=== PATIENT | female | born 1965 | race African-American/Black ===

== ENCOUNTER 2020-07-05 13:46 | Emergency (ER) | payer SELFPAY ==
[2020-07-05] VITALS (7 sets, daily range): BP systolic 133–168; BP diastolic 72–110; PULSE 65–78; RESP 15–22; TEMP 35.7; O2SAT 95–100
--- NOTE | 2020-07-05 15:14 | ED.DIZZY ---
HPI - Dizziness General Chief Complaint: Dizziness Stated Complaint: lightheaded Time Seen by Provider: 07/05/20 14:29 Source: patient, RN notes reviewed and old records reviewed Limitations: no limitations History of Present Illness HPI Narrative: 54-year-old female presents to emergency department from work. Patient states she was at work today, and felt lightheaded/dizzy. She was evaluated by the medical staff at her work, and found to have an elevated blood pressure with a systolic of 180s. She was then advised to come to the emergency department for further evaluation. She states she has been having a headache since this morning. Is located on the right side of her head, worse with light. She took 2 [id number] medications this morning to help with her symptoms. She has had a headache similar to this in the past about 1 year ago. No current chest pain or shortness of breath. No abdominal pain. No nausea or vomiting. Related Data Allergies Allergy/AdvReac Type Severity Reaction Status Date / Time Penicillins Allergy Unknown Unknown Verified 08/23/18 16:48 Review of Systems Review of Systems: Narrative: CONSTITUTIONAL: Denies fever, chills, or sweats. EYES: Denies visual changes, redness, or discharge. ENT: Denies rhinorrhea, congestion, sore throat, or otalgia. CARDIOVASCULAR: Denies chest pain, palpitations, or edema. RESPIRATORY: Denies cough or dyspnea. GASTROINTESTINAL: Denies abdominal pain, nausea, vomiting, or diarrhea. GENITOURINARY: Denies dysuria or hematuria. SKIN: Denies rash or itching. MUSCULOSKELETAL: Denies back pain, joint pain, or myalgia. NEUROLOGIC: Denies headache, numbness, dizziness, or weakness. PSYCHIATRIC: Denies anxiety or depression. All systems reviewed & are unremarkable except as noted in HPI and below (ROS) Exam Narrative: Exam Narrative: GENERAL: Well-appearing, well-nourished. Mild distress HEAD: Normocephalic, atraumatic. EYES: PERRLA and EOMI. ENT: Nares clear, no rhinorrhea or epistaxis. Mucous membranes moist. NECK: Supple. CHEST: Clear to auscultation. No respiratory distress. HEART: Regular rate and rhythm. No murmur heard. Normal peripheral pulses. ABDOMEN: Soft, nontender, nondistended, normal active bowel sounds. EXTREMITIES: Normal range of motion. No edema. SKIN: Warm, dry, no rash. NEURO: No focal deficits. Alert and oriented x3. PSYCH: Normal mood and affect. Course Reevaluation(s) Reevaluation #1: 1730 -reevaluated patient, headache improved. Lightheadedness and dizziness likely due to headache. Counseled patient to follow-up with her medical provider within 1 week. Return to emergency department if symptoms persist, worsen, or other concerns. Vital Signs Vital signs: Vital Signs Temperature 35.7 C L 07/05/20 14:13 Pulse Rate 77 07/05/20 14:13 Respiratory Rate 16 07/05/20 14:13 Blood Pressure 140/110 H 07/05/20 14:13 Pulse Oximetry 95 07/05/20 14:13 Temperature 35.7 C L 07/05/20 14:13 Pulse Rate 65 07/05/20 18:10 Respiratory Rate 16 07/05/20 18:10 Blood Pressure 133/72 07/05/20 18:10 Pulse Oximetry 98 07/05/20 18:10 MDM - Dizziness Medical Records Attestation: I reviewed the patient's medical records. Lab Data Attestation: I reviewed the patient's lab results. Result diagrams: 07/05/20 15:30 07/05/20 15:30 Labs: Lab Results 07/05/20 07/05/20 Range/Units 15:30 15:30 WBC 9.2 (4.5-10.0) K/mm3 RBC 4.60 (4.2-5.4) M/mm3 Hgb 13.8 (12.0-15.0) g/dL Hct 40.9 (37.0-47.0) % MCV 88.9 (80-100) fl MCH 30.0 (26-34) pg MCHC 33.7 (32-36) g/dl RDW 15.7 H (11.5-14.5) % Plt Count 202 (150-375) k/mm3 MPV 10.5 H (7.4-10.4) fl Immature Gran % (Auto) 0.3 (0-0.5) % Neut % (Auto) 55.9 (45.5-73.1) % Lymph % (Auto) 31.6 (18.3-44.2) % [place] % (Auto) 6.1 (2.6-8.5) % Eos % (Auto) 5.6 H (0-4.4) % Baso % (Auto) 0.5 (0.2-1.2) % Lymph # (Auto) 2.
[2020-07-05 15:38] LABS: Basophils Absolute Auto 0.1 K/mm3 (0.0-0.1); Basophils Percent Auto 0.5 % (0.2-1.2); Eosinophils Absolute Auto 0.5 K/mm3 (0-0.3); Eosinophils Percent Auto 5.6 % (0-4.4); Hematocrit 40.9 % (37.0-47.0); Hemoglobin 13.8 g/dL (12.0-15.0); Immature Granulocyte Absolute 0.03 K/mm3 (0.00-0.031); Immature Granulocyte Percent A 0.3 % (0-0.5); Lymphocytes Absolute Auto 2.92 K/mm3 (0.9-3.2); Lymphocytes Percent Auto 31.6 % (18.3-44.2); Mean Corpuscular HGB Conc 33.7 g/dl (32-36); Mean Corpuscular Volume 88.9 fl (80-100); Mean Platelet Volume 10.5 fl (7.4-10.4); Monocytes Absolute Auto 0.6 K/mm3 (0.1-0.6); Monocytes Percent Auto 6.1 % (2.6-8.5); Neutrophils Absolute Auto 5.2 K/mm3 (1.3-6.7); Neutrophils Percent Auto 55.9 % (45.5-73.1); Platelet Count Result 202 k/mm3 (150-375); Red Cell Distribution Width 15.7 % (11.5-14.5); White Blood Count 9.2 K/mm3 (4.5-10.0)
[2020-07-05 15:50] LABS: Alanine Aminotransferase 70 U/L (4-35); Albumin Level 4.2 g/dL (3.5-5.1); Alkaline Phosphatase 97 U/L (38-126); Anion Gap 4 mmol/L (8-16); Aspartate Amino Transferase 44 U/L (14-36); Bilirubin,Total 0.3 mg/dL (0.2-1.3); Blood Urea Nitrogen 16 mg/dL (7-17); Calcium 9.5 mg/dL (8.4-10.2); Carbon Dioxide 28 mmol/L (22-30); Chloride 105 mmol/L (98-107); Estimated CRCL calculation 93 ml/min; Estimated Glomerular Filt Rate > 60; Glucose 109 mg/dL (65-105); Sodium 137 mmol/L (137-145)
[2020-07-05] MEDS: diphenhydrAMINE HCl CAP 25 MG CAPSULE 50 MG PO (16:14)
[2020-07-05] MEDS: KETOROLAC 30 MG/ML VIAL (*BKC) IM (16:15)
[2020-07-05] MEDS: PROCHLORPERAZINE EDISYLATE 10 MG/2 ML VIAL IM (16:16)
== END 2020-07-05 18:10 | disposition home or self-care (01) ==
PROVIDERS: Emergency Provider Emergency Medicine; PCP Family Medicine
DX: R51.9 Headache, unspecified (principal)
CPT/HCPCS: 36415; 80053; 85025; 96372; 99284; A9270; J0780; J1885

== ENCOUNTER 2020-12-02 19:07 | Emergency (ER) | payer SELFPAY ==
--- NOTE | ~2020-12-02 | XR_ITS ---
EXAMINATION: XR chest 2V EXAM DATE: 12/02/2020 19:40 INDICATION: Chest congestion. TECHNIQUE: Frontal and lateral projections of the chest obtained and reviewed. There is no prior keely dy for comparison. FINDINGS: Linear right midlung zone atelectasis, several smaller regions of left midlung zone atelect asis. The lungs are otherwise clear. There are no pleural effusions. The cardiomediastinal silhouet te is within normal limits. There is no pneumothorax suspected. The bones and soft tissues are unre markable. IMPRESSION: Bilateral subsegmental atelectasis. Reviewed, dictated and finalized at location A.
[2020-12-02 19:18] VITALS: BP 176/84; PULSE 84; RESP 16; TEMP 36.4; O2SAT 99
--- NOTE | 2020-12-02 19:27 | ED.URI ---
HPI - URI/Sore Throat General Chief Complaint: Upper Respiratory Infection Stated Complaint: Sore Throat,Congestion Time Seen by Provider: 12/02/20 19:27 Source: patient and RN notes reviewed Mode of arrival: ambulatory Limitations: no limitations History of Present Illness HPI Narrative: 55-year-old female presents to the [facility] with complaints of generalized fatigue and I just do not feel good . reports a nonproductive cough. After coughing has some mild tightness in the upper chest bilaterally. Denies fevers. 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 States that she is tested for Covid every 2 weeks and has tested negative however she has had this cough, nasal congestion, rhinorrhea. Patient is a current smoker. Has a history of bronchitis. No treatment prior to arrival Related Data Allergies Allergy/AdvReac Type Severity Reaction Status Date / Time Penicillins Allergy Unknown Unknown Verified 08/23/18 16:48 Review of Systems Review of Systems: All systems reviewed & are unremarkable except as noted in HPI and below Constitutional: Constitutional: Reports as per HPI, Reports fatigue, Denies fever(s) and Denies weakness Eyes: Eyes: Reports no additional eye complaints ENT: Reports system reviewed and no additional complaints, except as documented and Reports sore throat Cardiovascular: Cardiovascular: Reports no additional cardiovascular complaints and Denies chest pain Respiratory: Respiratory: Reports as per HPI, Reports chest congestion, Reports cough, Reports dyspnea and Denies wheezing Gastrointestinal: Gastrointestinal: Reports no additional gastrointestinal complaints, Denies abdominal pain, Denies nausea and Denies vomiting Musculoskeletal: Musculoskeletal: Reports no additional musculoskeletal complaints and Denies back pain Integumentary/Breasts: Skin/Breast: Reports system reviewed and no additional complaints, except as docu and Denies rash Neurologic: Reports system reviewed and no additional complaints, except as documented Psychiatric: Psychiatric: Reports no additional psychiatric complaints PMFSH Comments At the time of my signature, I reviewed and agree with the nursing past medical, surgical, social, and family history. There is no relevant family history pertinent to the patient complaint. Exam Const: General: no acute distress, alert and ill appearing (Mildly) acutely Nutritional Appearance: well nourished and obese morbidly obese Orientation/consciousness: patient oriented x3 Limitations: no limitations HENMT: Head: normal to inspection Face and sinus: sinuses nontender Mouth: Yes Normal oral and palatal mucosa present Throat: posterior oropharynx normal and uvula midline Eyes: Pupils: Equal, round and reactive pupils present Neck: Neck: normal visual inspection and no lymphadenopathy Chest: Chest palpation & inspection: normal inspection of the chest Resp: Effort & Inspection: normal respiratory effort and no use of accessory muscles Auscultation: no crackles, no rales, no rhonchi, no wheezes and diminished lung sounds bilateral and localized (Lower lobes) Cardio: Rate: regular rate Rhythm: regular rhythm : General: Yes no CVA tenderness Back/Spine/Pelvis: Back: no CVA tenderness Skin: General skin exam: normal color Rashes: no rashes Neuro: General: patient oriented x3, moves all extremities, no meningeal signs and no focal motor deficits Speech: normal speech Gait exam (Neuro): Normal gait present Extrem: General: normal to inspection Psych: Appearance: grossly normal Mental Status: mental status grossly normal Affect: normal affect Attitude: cooperative Thought content: Yes Normal thought content present Course Vital Signs Vital signs: Vital Signs Temperature 97.6 F 12/02/20 19:18 Pulse Rate 84 12/02/20 19:18 Respiratory Rate 16 12/02/20 19:18 Blood Pressure 176/84 H 12/02/20 19:18 Pulse Oximetry 99 12/02/20 19:18 Temperature 97.6 F 12/02/20 1
[2020-12-04 18:48] LABS: SARS-CoV-2 RNA PCR Negative
== END 2020-12-02 19:51 | disposition home or self-care (01) ==
PROVIDERS: Emergency Provider Nurse Practitioner; PCP Family Medicine
DX: J06.9 Acute upper respiratory infection, unspecified (principal); J40 Bronchitis, not specified as acute or chronic
CPT/HCPCS: 71046; 87804; 99213; C9803; G0463; U0003; U0005

== ENCOUNTER 2021-05-03 09:14 | Emergency (ER) | payer BC, SELFPAY ==
[2021-05-03 09:31] VITALS: BP 142/90; PULSE 76; RESP 16; TEMP 36.4; O2SAT 98
--- NOTE | 2021-05-03 19:17 | ED.FEMALEGU ---
HPI - Female Genitourinary General Chief complaint: Urogenital-Female Stated complaint: uti Time Seen by Provider: 05/03/21 10:06 Source: patient and RN notes reviewed Mode of arrival: ambulatory Limitations: no limitations History of Present Illness HPI Narrative: Patient presents today complaining of 4-day history of urinary frequency, dysuria, urgency, urinary pressure. Patient states, it feels like something is falling out. She currently rates the pressure 8/10 and has been drinking cranberry juice and taking Tylenol and Aleve without relief. Denies hematuria and back pain. MD elicited complaint: dysuria Related Data Home Medications Medication Instructions Recorded Confirmed amitriptyline 05/03/21 amlodipine 05/03/21 gabapentin 05/03/21 lisinopril 05/03/21 Allergies Allergy/AdvReac Type Severity Reaction Status Date / Time Penicillins Allergy Unknown Unknown Verified 08/23/18 16:48 Review of Systems Review of Systems: CONSTITUTIONAL: Denies body aches, fever, chills, or sweats. EYES: Denies visual changes, redness, or discharge. ENT: Denies rhinorrhea, congestion, sore throat, or otalgia. CARDIOVASCULAR: Denies chest pain, palpitations, or edema. RESPIRATORY: Denies cough or dyspnea. GASTROINTESTINAL: Denies nausea, vomiting, or diarrhea.+ Lower abdominal pressure GENITOURINARY: Denies hematuria.+ Urgency, frequency, dysuria SKIN: Denies rash, itching, or wounds. MUSCULOSKELETAL: Denies back pain, joint pain, or myalgia. NEUROLOGIC: Denies headache, numbness, tingling, or weakness. PSYCH: Denies depression or anxiety. [facility], [facility] Past Medical History Medical History (Updated 05/03/21 @ 19:24 by Ange Casey, [facility], ) Anxiety GERD (gastroesophageal reflux disease) Hypertension Comments At time of signature, I have reviewed and agree with nursing past medical, surgical, social and family history unless otherwise noted. Please see nursing chart for further information. There is no relevant family history pertinent to the presenting complaint Exam Narrative: GENERAL: Well-appearing, well-nourished, and in no acute distress. HEAD: Normocephalic, atraumatic. EYES: EOMI. No redness or drainage. Conjunctivae normal. ENT: Mucous membranes pink and moist. NECK: Normal AROM. CHEST: No respiratory distress. Clear to auscultation. HEART: Regular rate and rhythm. No murmur appreciated. Normal peripheral pulses. ABDOMEN: Soft, nontender, nondistended, normal active bowel sounds. MUSCULOSKELETAL: No bony tenderness. EXTREMITIES: Normal range of motion. No edema. SKIN: Warm, dry, no rash. Capillary refill normal. Normal skin turgor. NEURO: No focal deficits. Alert and oriented x3. Gait steady. PSYCH: Normal affect. No signs of depression or anxiety. Course Vital Signs Vital signs: Vital Signs Temperature 97.5 F L 05/03/21 09:31 Pulse Rate 76 05/03/21 09:31 Respiratory Rate 16 05/03/21 09:31 Blood Pressure 142/90 H 05/03/21 09:31 Pulse Oximetry 98 05/03/21 09:31 Temperature 97.5 F L 05/03/21 09:31 Pulse Rate 76 05/03/21 09:31 Respiratory Rate 16 05/03/21 09:31 Blood Pressure 142/90 H 05/03/21 09:31 Pulse Oximetry 98 05/03/21 09:31 Reviewed. Pt has been instructed to follow up with her PCP regarding her elevated blood pressure today. MDM - Female Genitourinary Differential Diagnosis Differential diagnosis: Likely urinary tract infection, cystitis and other (Bladder prolapse, vaginal prolapse) Lab Data Attestation: I reviewed the patient's lab results. Labs: Urine Glucose Negative Reference Range: Negative Urine Bilirubin Negative Reference Range: Negative Urine Ketone Negative Reference Range: Negative Urine Specific [place] 1.030
== END 2021-05-03 10:25 | disposition home or self-care (01) ==
PROVIDERS: Emergency Provider Nurse Practitioner; PCP Family Medicine
DX: R10.31 Right lower quadrant pain (principal); R10.32 Left lower quadrant pain; F41.9 Anxiety disorder, unspecified; I10 Essential (primary) hypertension; K21.9 Gastro-esophageal reflux disease without esophagitis
CPT/HCPCS: 81003; 99213; G0463

== ENCOUNTER 2023-01-10 19:14 | Emergency (ER) | payer BC, SELFPAY ==
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
[2023-01-10 19:24] VITALS: BP 152/72; PULSE 93; RESP 16; TEMP 36.3; O2SAT 97
[2023-01-10 19:26] VITALS: BP 152/72; PULSE 93; RESP 16; TEMP 36.3; O2SAT 97
== END 2023-01-10 19:46 | disposition home or self-care (01) ==
PROVIDERS: Emergency Provider Nurse Practitioner Family; PCP Physician Assistant
DX: T15.92XA Foreign body on external eye, part unspecified, left eye, initial encounter (principal); X58.XXXA Exposure to other specified factors, initial encounter; K21.9 Gastro-esophageal reflux disease without esophagitis; I10 Essential (primary) hypertension
CPT/HCPCS: 99213; A9270; G0463

== ENCOUNTER 2024-04-14 13:05 | Emergency (ER) | payer BC, SELFPAY ==
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
[2024-04-14 13:08] VITALS: BP 151/74; PULSE 89; RESP 20; TEMP 36.9; O2SAT 96
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
[2024-04-14] MEDS: ACETAMINOPHEN 500 MG TABLET 1000 MG PO (13:56)
[2024-04-14 15:15] VITALS: BP 163/92; PULSE 70; RESP 18; TEMP 36.5; O2SAT 99
== END 2024-04-14 15:20 | disposition home or self-care (01) ==
PROVIDERS: Emergency Provider Physician Assistant; PCP Physician Assistant
DX: S00.83XA Contusion of other part of head, initial encounter (principal); I10 Essential (primary) hypertension; K21.9 Gastro-esophageal reflux disease without esophagitis; Y04.2XXA Assault by strike against or bumped into by another person, initial encounter
CPT/HCPCS: 70450; 70486; 72125; 99284; A9270

== ENCOUNTER 2024-04-24 20:15 | Emergency (ER) | payer BC, SELFPAY ==
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
[2024-04-24 20:26] VITALS: BP 142/69; PULSE 71; RESP 16; TEMP 36.4; O2SAT 99
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
[2024-04-24 22:10] VITALS: BP 134/82; PULSE 78; RESP 17; TEMP 36.7; O2SAT 98
== END 2024-04-24 22:10 | disposition home or self-care (01) ==
LOC: ANHED 21:21
PROVIDERS: Emergency Provider Family Medicine; PCP Physician Assistant
DX: S80.11XA Contusion of right lower leg, initial encounter (principal); I10 Essential (primary) hypertension; K21.9 Gastro-esophageal reflux disease without esophagitis; F41.9 Anxiety disorder, unspecified; Z79.899 Other long term (current) drug therapy
CPT/HCPCS: 73590; 99283

== ENCOUNTER 2024-07-11 23:36 | Emergency (ER) | payer SELFPAY ==
[2024-07-11 23:44] VITALS: BP 148/77; PULSE 98; RESP 16; TEMP 36.4; O2SAT 100
--- NOTE | 2024-07-11 23:46 | PC.NURSE ---
upon arrival nasal clamp was placed to control bilateral nasal bloody discharge.
--- NOTE | 2024-07-11 23:48 | PC.NURSE ---
upon patient entering back into waiting room, patient epitaxsis increased excessively and drainage seeping through nasal clamp with pressure. pt brought back into er bed H3.
--- NOTE | 2024-07-11 23:56 | ED.EPISTAXIS ---
HPI - Epistaxis General Chief complaint: Epistaxis Stated complaint: bilateral nare bleeding Time Seen by Provider: 07/11/24 23:49 History of Present Illness HPI Narrative: Patient is a 4-year-old female who presents emergency department this evening complaining of a nose bleed. Patient states that the bleed started around 8:00 p.m. and she tried to hold pressure but did not resolve so she finally decided to come to the emergency department for further evaluation. Denies any similar symptoms in the past. Denies any blood thinner use stating that she only takes a baby aspirin daily. Patient denies any recent falls or any nasal trauma. Admits that she recently had symptoms of a cold with some nasal congestion. Currently denying any lightheadedness or dizziness, any chest pain, shortness of breath, nausea vomiting or abdominal pain. Denies any fevers or chills at home. No additional symptoms or concerns at this time. Related Data Home Medications ?Medication ?Instructions ?Recorded ?Confirmed ?Last Taken ?Type amlodipine 10 mg DIRECTED 05/03/21 01/10/23 Unknown History gabapentin 300 mg DIRECTED 05/03/21 01/10/23 Unknown History lisinopril 05/03/21 Unknown History amitriptyline 150 mg tablet 150 mg DIRECTED 01/10/23 01/10/23 Unknown History hydrochlorothiazide 25 mg tablet 25 mg DIRECTED 01/10/23 01/10/23 Unknown History Allergies Allergy/AdvReac Type Severity Reaction Status Date / Time No Known Allergies Allergy Verified 04/14/24 13:25 Review of Systems Review of Systems: All systems are reviewed and are negative unless stated otherwise in the HPI. [facility] Past Medical History Medical History Hypertension GERD (gastroesophageal reflux disease) Anxiety Exam Narrative: General: Alert, awake, afebrile, in no acute distress. HEENT: PERRL, no rhinorrhea, no post nasal drip, oropharynx clear, epistaxis mainly out of the right nostril, unable to visualize source. Neck: Trachea midline, no JVD, no lymphadenopathy. Cardiovascular: Regular rate and rhythm, no murmurs, rubs or gallops, no peripheral edema. Respiratory: Clear to auscultation bilaterally, no tachypnea, no wheezing, no rhonchi, no rubs, no respiratory distress. Abdomen: Soft, nontender, nondistended, no rebound, no guarding, no peritoneal signs. Musculoskeletal: No joint swelling or deformity, normal muscle tone. Skin: No rashes or petechia, no signs of infection. Psychiatric: Alert and oriented, normal behavior and judgment for situation. Neurological: Alert and oriented to person, place, and time. Follows all commands. No focal deficits, speech is clear and fluent. Course Vital Signs Vital signs: Vital Signs Temperature 97.6 F 07/11/24 23:44 Pulse Rate 98 07/11/24 23:44 Respiratory Rate 16 07/11/24 23:44 Blood Pressure 148/77 H 07/11/24 23:44 Pulse Oximetry 100 07/11/24 23:44 Oxygen Delivery Room Air 07/11/24 23:44 Temperature 97.6 F 07/11/24 23:44 Pulse Rate 98 07/11/24 23:44 Respiratory Rate 16 07/11/24 23:44 Blood Pressure 148/77 H 07/11/24 23:44 Pulse Oximetry 100 07/11/24 23:44 Oxygen Delivery Room Air 07/11/24 23:44 Procedures Epistaxis Control bilateral: Epistaxis Control Date: 07/12/24 Epistaxis Control Time: 02:03 Nose Prepped With: oxymetazoline Direct Inspection: unable to visualize Clots Removed by: manually Cautery Used: none Device Inserted: nasal tampon Patient Tolerated Procedure: other ( Initial tolerated, however, on repeat assessment patient requested packing removal.) MDM - Epistaxis MDM Narrative Medical decision making narrative: The patient was evaluated by myself in the emergency department. History is obtained from [source] who is an independent historian and physical exam was performed. External medical records were reviewed at this time. Initially nasal pressure was applied with minimal to no improvement. At this time patient was informed that the next step is to attempt to nasal packing and patient was agreeable. Rhino rocket was used to pack the right nostril. Patient initially tolerated the packing and on repeat assessment of the patient, patient states that it is uncomfortable and wants to have it taken out. Patient did have some mild epistaxis out of the left nostril after packing and common soaked in Afrin was placed with improvement of the symptoms. Patient wants the same done to the right nostril. she is refusing to attend [place] dinner with a nasal packing. At this time fiction and nonfiction prose writer rocket was removed and cotton ball with afrin placed in the right nostril. On repeat assessment of the patient 15 minutes later, epistaxis control. Patient was informed that since she does not want her nasal, there is high likelihood of the epistaxis returning causing her to return to the emergency department and patient states she understands the risks and still refuses packing. Differential diagnosis considerations include anterior versus posterior epistaxis. Comorbidities impacting this visit include none. I have evaluated and discussed social determinants of health with the patient that could potentially impact subsequent diagnosis and treatment plans. On repeat assessment of the patient, reevaluation revealed that the patient is doing well and is in no acute distress. Patient symptoms have improved since she arrived to our emergency department. Repeat vital signs were all reviewed and noted to be stable. Differential diagnosis and treatment plan were discussed with the patient at bedside. Patient agrees with discussion and after shared medical decision making agrees with discharge. All questions were answered to the patient's satisfaction. Patient will follow up with ENT in 2 days. Patient was provided with strict return precautions and instructed to return to the emergency department if any new or worsening symptoms develop. The patient was discharged in stable condition. Discharge Plan Discharge Clinical Impression: Epistaxis Patient Disposition: Home, Self-Care Condition: Improved Instructions: Antibiotic Form, Nosebleed (ED) Additional Instructions: Please follow-up with the ENT doctor you were provided with today within the next 24-48 hours. Return to the emergency department if any new or worsening symptoms develop. Patient Language: Kyrgyz Prescriptions: No Action amlodipine 10 mg DIRECTED gabapentin 300 mg DIRECTED lisinopril cyclobenzaprine 10 mg tablet 10 mg PO TID PRN (Reason: muscle spasm) Qty: 20 0RF amitriptyline 150 mg tablet 150 mg DIRECTED hydrochlorothiazide 25 mg tablet 25 mg DIRECTED hydrocodone-acetaminophen 5-325 mg tablet 1 tablet PO Q8H PRN (Reason: pain) Qty: 10 0RF Follow-up/Referrals: Lucero,OLIVIER Meneses [Primary Care Provider] - Hawk Choi MD [Physician] - 2 Days Stand Alone Forms: Work/School Release IP Time of Disposition: 01:56
[2024-07-12 02:17] VITALS: BP 144/92; PULSE 83; RESP 14; O2SAT 99
--- OUTSIDE RECORDS SUMMARY | 2024-07-19 00:15 | XMS_ITS | Referral Summary ---
Author Organization [facility] Address [address] [place] [address] Care Team Providers Care Health Equipment Servicer Name Role Phone Unavailable Primary Care Provider Unavailabl e Source Comments [facility],non-owned Affiliates and Associated Physician Practices is amultiple site organization consisting of ambulatory clinics and hospital sitesin [place], [place]. This disclosure is being madepursuant to the Care Everywhere program and may not contain all information available regarding this patient. Last updated 18.[facility] Allergies Active Allergy Reactions Criticality Noted Date Comments Penicillins GI Discomfort 10/19/2016 Edema, nausea Medications * Be aware that medications may not be up to date on this document. Alwaysverify current medications with the patient. Medication Sig Dispensed Refills Start Date End Date Status aspirin (ASPIRIN) 81 MG tablet Take 81 mg by mouth once daily Active AMLODIPINE BESYLATE PO Ac tive IBUPROFEN PO Active Acetaminophen (TYLENOL PO) Active azithromycin (ZITHROMAX) 250 MG tabletIndications:Coug h with sputum Take 2 tablets now, then 1 tablet daily for 4 days. 6 Tab 10/19/2016 Active Social History Tobacco Use Types Packs/Day Years Used Date Smoking Tobacco: Every Day Cigarettes 0.5 20 Tobacco Cessation:Ready to Q uit: No; Counseling Given: No Alcohol Use Standard Drinks/Week Comments No 0 (1 standard drink = 0.6 oz pur e alcohol) Sex and Gender Information Value Date Recorded Sex Assigned at Not on file Gender Identity Not on file Sexual Orientation Not on file Last Filed Vital Signs Vital Sign Reading Time Taken Comments Blood Pressure 135/83 10/19/2016 12:28 PM CDT Pulse 64 10/19/2016 12:28 PM CDT Temperature 36.8 ??C (98.2 ??F) 10/19/2016 12:28 PM C DT Respiratory Rate 20 10/19/2016 12:28 PM CDT Oxygen Saturation 98% 10/19/2016 12:28 PM CDT Inhaled Oxygen Concentration - - Weight 103.9 kg (229 lb) 10/19/2016 12:28 PM CDT Height 162.6 cm (5' 4 ) 10/19/2016 12:28 PM CDT Body Mass Index 39.31 10/19/2016 12:28 PM CDT Plan of Treatment Not on file
--- OUTSIDE RECORDS SUMMARY | 2024-07-19 00:15 | XMS_ITS | Continuity of Care Document ---
Author Organization [facility] Address [address] [place] [address] Phone Care Team Providers Care Maintenance Mechanic 2Nd Shift Name Role Phone [employer] Unavailable Unavailable Procedures Procedure Date Walking Boot, Pneumatic, With Or Without Joints, W Advance Directives Directive Yes / No Effective Date File Name No Information Encounters Encounter Description Practice Location Reason(s) For Visit Diagnoses Date Provider Providers Copied on Encounter [facility], [address], [place], [address], tel:[phone] [facility] No Information 200 [address] [facility]. [address], [place], [address], [place]. tel:[phone] Referring Provider: Yves Acuña, [address] [place] [address], [id number] . tel:[phone] Family History Family Member Type Diagnosis Age At Onset No Information Payers Payer name Insurance type Covered green party ID Authoriza tion(s) [facility] CI [id number] Social History Type Description Quantity Date Captured Comments Sex Female Smoking Status No Information Chief Complaint And Reason For Visit No Information Reason For Referral Reason For Referral No Information History Of Present Illness Encounter Date Complaint History Of Prese nt Illness No Information Functional Status Date Functional Assessmen t No Information Instructions Date Instruction Additional Infor mation No Information Assessments Type Assessment Date No Information Patient Care Teams Name Effective Dates (start - stop) Status Members No Information
--- OUTSIDE RECORDS SUMMARY | 2024-07-19 00:15 | XMS_ITS | Patient Health Summary ---
Author Organization [facility] Address [address] [place] [address] Care Team Providers Care Dough Raiser Name Role Phone Unavailable Primary Care Provider Unavailabl e Note from [facility],non-owned Affiliates and Associated Physician Practices is amultiple site organization consisting of ambulatory clinics and hospital sitesin [place], [place] and [place]. This disclosure is being madepursuant to the Care Everywhere program and may not contain all information available regarding this patient. Last updated 18.[facility] Allergies * Penicillins(GI Discomfort) Medications * Be aware that medications may not be up to date on this document. Alwaysverify current medications with the patient. * aspirin (ASPIRIN) 81 MG tablet Take 81 mg by mouth once daily * AMLODIPINE BESYLATE PO * IBUPROFEN PO * Acetaminophen (TYLENOL PO) * azithromycin (ZITHROMAX) 250 MG tablet(Started 10/19/2016) Take 2 tablets now, then 1 tablet daily for 4 days. Social History Tobacco Use Types Packs/Day Years [...]
--- OUTSIDE RECORDS SUMMARY | 2024-07-19 00:15 | XMS_ITS | Encounter Summary ---
Author Organization [facility] Address [address] [place] [address] Care Team Providers Care Last Pattern Grader Name Role Phone Unavailable Primary Care Provider Unavailabl e Reason for Visit * Reason Comments Cough Pain Back Encounter Details Date Type Department Care Team (Late st Contact Info) Description 10/19/2016 2:20 PM CDT Office Visit [facility] AT [address] [address] Provider, Kristin Cho [facility] Cough with sputum (Primary Dx); Upper back pain on right side Social History Tobacco Use Types Packs/Day Years [...] on file Sexual Orientation Not on file documented as of this encounter Last Filed Vital Signs Vital Sign Reading [...] Mass Index 39.31 10/19/2016 12:28 PM CDT documented in this encounter Patient Instructions * Patient Instructions* Vargas Garcia APRN-CNP - 10/19/2016 12:42 PM CDT Back Pain RECYCLING COLLECTIONS DRIVER: Back pain is common. You may feel sore or stiff on one or both sides of your back. The pain may spread to your buttocks or thighs. Back pain may be caused by an injury, lack of exercise, or obesity. Repeated bending, lifting, twisting, or lifting heavy items can also cause back pain. Seek immediate care for the following symptoms: ?? Pain, numbness, or weakness in one or both legs ?? Pain that is so severe, you cannot walk ?? Unable to control your urine or bowel movements ?? Severe back pain with chest pain ?? Severe back pain, nausea, and vomiting ?? Severe back pain that spreads to your side or genital area Contact your healthcare provider if: ?? You have back pain that does not get better with rest and pain medicine. ?? You have a fever. ?? You have pain that worsens when you are on your back or when you rest. ?? You have pain that worsens when you cough or sneeze. ?? You lose weight without trying. ?? You have questions or concerns about your condition or care. Treatment for back pain may include any of the following: ?? NSAIDs , such as ibuprofen, help decrease swelling, pain, and fever. This medicine is available with or without a doctor's order. NSAIDs can cause stomach bleeding or kidney problems in certain people. If you take blood thinner medicine, always ask your healthcare provider if NSAIDs are safe foryou. Always read the medicine label and follow directions. ?? Acetaminophen decreases pain. It is available without a doctor's order. Ask how much to take andhow often to take it. Follow directions. Acetaminophen can cause liver damage if not taken correctly. ?? Prescription pain medicine may be given. Ask your healthcare provider how to take this medicine safely. Manage your back pain: ?? Apply ice on your back for 15 to 20 minutes every hour or as directed. Use an ice pack, or put crushed ice in a plastic bag. Cover it with a towel. Ice helps decrease swelling and pain. ?? Apply heat on your back for 20 to 30 minutes every 2 hours for as many days as directed. Heat helps decrease pain and muscle spasms. You can alternate ice and heat. ?? Stay active as much as you can without causing more pain. Bed rest could make your back pain worse. Avoid heavy lifting until your pain is gone. Follow up with your healthcare provider as directed: Write down your questions so you remember to ask them during your visits. ?? 2016 [employer]. Information is for End User's use only and may not be sold, redistributed or otherwise used for commercial purposes. All illustrations and images included in CareNotes?? are the copyrighted property of [employer] or [employer]. The above information is an physician's aide only. It is not intended as medical advice for individual conditions or treatments. Talk to your doctor, nurse or pharmacist before following any medical regimen to see if it is safe and effective for you. Acute Cough RECYCLING COLLECTIONS DRIVER: An acute cough is a cough that lasts up to 3 weeks. It may be caused by the common cold, allergies,or an infection. Conditions such as COPD and asthma may also cause an acute cough. Seek care immediately if: ?? You are breathing fast, or you have trouble breathing. ?? You cough up blood, or you see blood in your mucus. ?? You have a fever, and you are coughing up yellow or green mucus. Contact your healthcare provider if: ?? Your cough does not get better within 8 weeks. ?? You have questions or concerns about your condition or care. Treatment: An acute cough usually goes away on its own within 3 to 4 weeks. Ask your healthcare provider about medicines you can take to decrease your cough. You may need medicine to treat allergies or decrease swelling in your airways. If you have a bacterial infection, you may need antibiotics. Follow up with your healthcare provider as directed: Write down your questions so you remember to ask them during your visits. ?? 2016 [employer]. Information is for End User's use only and may not be sold, redistributed or otherwise used for commercial purposes. All illustrations and images included in CareNotes?? are the copyrighted property of [employer] or [employer]. The above information is an physician's aide only. It is not intended as medical advice for individual conditions or treatments. Talk to your doctor, nurse or pharmacist before following any medical regimen to see if it is safe and effective for you. documented in this encounter Progress Notes * Vargas Garcia, ROBERT - 10/19/2016 12:33 PM CDT Subjective: Allison Gonzalez is a 51 y.o. female who presents to clinic today for Chief Complaint Patient presents with ??? Cough ??? Pain Back . Primary Care Physician is No primary care provider on file. . Patient reports the following symptoms: back pain, chest wall pain, cough and runny nose, chills last night. Onset of symptoms was 3 days ago, gradually worsening since that time. The cough is productive and is aggravated by smoking. Pt denies any injury to back. Associated symptoms include:SOB, chills, wheezing. Patient does not have new pets. Patient does not have a history of asthma. Patient does not have a history of environmental allergens. Patient does not have recent travel. Patient doeshave a history of smoking, pt is a current every day smoker. Patient does not have previous Chest X-ray. Patient does not have had a PPD done. Pt states she has a PCP, but can not remember name. Past Medical History Diagnosis Date ??? Hypertension ??? Pituitary tumor Family History Problem Relation Age of Onset ??? Cancer Other Mother ??? Diabetes Mother ??? Heart defect Mother ??? Hypertension Mother Current Outpatient Prescriptions Medication Sig Dispense Refill ??? aspirin (ASPIRIN) 81 MG tablet Take 81 mg by mouth once daily ??? AMLODIPINE BESYLATE PO ??? IBUPROFEN PO ??? Acetaminophen (TYLENOL PO) ??? azithromycin (ZITHROMAX) 250 MG tablet Take 2 tablets now, then 1 tablet daily for 4 days. 6 Tab 0 No current facility-administered medications for this visit. Allergies Allergen Reactions ??? Penicillins GI Discomfort Edema, nausea History Social History ??? Marital status: Single Spouse name: N/A ??? Number of children: N/A ??? Years of education: N/A Occupational History ??? Not on file. Social History Main Topics ??? Smoking status: Current Every Day Smoker Packs/day: 0.50 Years: 20.00 ??? Smokeless tobacco: Not on file ??? Alcohol use: No ??? Drug use: Not on file ??? Sexual activity: Not on file Other Topics Concern ??? Not on file Social History Narrative ??? No narrative on file Review of Systems Pertinent items are noted in HPI Objective: BP 135/83 (BP SITE: LEFT ARM, BP POSITION: SITTING, BP CUFF SIZE: Adult) Pulse 64 Temp 98.2 ??F (Oral) Resp 20 Ht 1.626 m (5' 4 ) Wt 103.9 kg (229 lb) SpO2 98% BMI 39.31 kg/m2 Oxygens Saturation 98% on room air Exam: General appearance: alert, cooperative, no distress, oriented to person, place, and time, well appearing Head: normocephalic, without trauma Eyes: sclera and conjunctiva clear, EOMI and PERRLA, lids normal Ears: canals clear, tympanic membranes normal, hearing intact to voice Nose: nares open; no septal deviation is noted, nasal mucosa not inflamed, no maxillary tenderness Throat: no mucous membrane abnormalities, lips, mucosa, and tongue normal; teeth and gums normal Neck: range of motion is intact, no masses, thyroid not enlarged, no adenopathy Nodes: no cervical, axillary or inguinal adenopathy Back: mild to moderate back pain with flexion, and extension, full ROM of arms bilaterally with mild pain over the right upper back region with right arm movement. mild tenderness upon palpation overmidline to right cervical/thoracic area. No redness, bruising, or edema noted. No rashes. No abrasions noted. Lungs: decreased breath sounds bilaterally posterior bases; no rales or wheezes Heart: regular rhythm, normal S1 and S2, without murmurs, gallops or rubs Skin: no rashes or other abnormalities are noted Neurologic: mental status normal; alert and oriented X 3; cranial nerves II - XII are grossly intact Assessment: Encounter Diagnoses Name Primary? Cough with sputum Yes ??? Upper back pain on right side Pt states she has flexeril at home but has not taken any for this occurrence. Plan: 1. antibiotics 2. Follow-up visit in 2 days with PCP, or sooner as needed. 3. See orders below 4. Patient referred to PCP if none on file 5. Discussed with pt to take flexeril that she has at home as prescribed. Over the next 1-2 days and see if she notices any improvement in the back pain. 6. OTC analgesics for pain tylenol PRN 7. Drink plenty of fluids and get plenty of rest. 8. Heat and ice to affected area as discussed for approx. 15-20 min each time, a couple times per day (as discussed, see handout given) 9. Gentle ROM exercises for upper body 10. Follow up with PCP on Friday as discussed. 11. Educational material given. 12. Seek treatment if you notice any rash on back area. Orders Placed This Encounter ??? azithromycin (ZITHROMAX) 250 MG tablet Sig: Take 2 tablets now, then 1 tablet daily for 4 days. Dispense: 6 Tab Refill: 0 No results found for this or any previous visit (from the past 24 hour(s)). documented in this encounter Plan of Treatment Not on file documented as of this encounter Visit Diagnoses Diagnosis Cough with sputum- Primary Cough Upper back pain on right side Pain in thoracic spine documented in this encounter
--- OUTSIDE RECORDS SUMMARY | 2024-07-19 00:15 | XMS_ITS | Clinical Summary ---
Author Organization [facility] Address [address] [place] [address] Care Team Providers Care Home Staging Specialist Name Role Phone Unavailable Primary Care Provider Unavailabl e Source Comments [facility],non-owned Affiliates and Associated Physician Practices is amultiple site organization consisting of ambulatory clinics and hospital sitesin [place], [place], [place] and [place]. This disclosure is being madepursuant to the Care Everywhere program and may not contain all information available regarding this patient. Last updated 18.[facility] Allergies Active Allergy Reactions Criticality Noted Date [...] for 4 days. 6 Tab 10/19/2016 Active Family History Medical History Relation Name Comments Cancer - Other Mother Diabetes Mother Heart defect Mother Hypertension Mother Relation Name Status Comments Mother Social History Tobacco Use Types Packs/Day Years [...] 10/19/2016 12:28 PM CDT Plan of Treatment Health Maintenance Due Date Last Done Comments COLOGUARD (AGES 45-75) - COL ON CA SCREENING 1963 COLON MONITORING 1963 COLONOSCOPY - COLON CA SCREENING 1963 CT COLONOGRAPHY - COLON CA SCREENING 1963 Colorectal Cancer Screening 1963 FIT - COLON CA SCREENING 1963 FLEX SIG - COLON CA SCREENING 1963 LIPID TESTING 1963 MAMMOGRAM 1963 PAP SMEAR 1963 PNEUMOCOCCAL VACCINE (1 of 2 - PCV) 1969 HIV SCREENING 1978 HEPATITIS C SCREENING 08/06/1981 DTAP/TDAP/TD VACCINES (1 - Tdap) 1982 ZOSTER VACCINE (1 of 2) 2013 DEPRESSION SCREENING 07/21/2023 COVID-19 VACCINE (1 - 2023-2 5 season) 2024 INFLUENZA VACCINE (#1) 2024 Respiratory Syncytial Virus (RSV) Vaccine Pt: or over 60 yrs (1 - 1-dose 75+ series) 2038 HEPATITIS B VACCINE Aged Out No longe r eligible based on patient's age to complete this topic HIB VACCINE Aged Out No longer eligi ble based on patient's age to complete this topic HPV VACCINE Aged Out No longer eligi ble based on patient's age to complete this topic MENINGOCOCCAL VACCINE Aged Out No manjula shelly eligible based on patient's age to complete this topic
--- OUTSIDE RECORDS SUMMARY | 2024-07-19 00:15 | XMS_ITS | Encounter Summary ---
Author Organization [facility] Address [address] [place] [address] Care Team Providers Care Operator Maintainer Name Role Phone Unavailable Primary Care Provider Unavailabl e Reason for Visit * Reason Onset Date Comments Follow-up 10/21/2016 Encounter Details Date Type Department Care Team (Late st Contact Info) Description 10/21/2016 Telephone [facility] AT [address] [address] Vandana Brunner Follow-up Social History Tobacco Use Types Packs/Day Years Used Date Smoking Tobacco: Every Day Cigarettes 0.5 20 Alcohol Use Standard Drinks/Week Comments No 0 (1 standard drink = 0.6 oz pur e alcohol) Sex and Gender Information Value Date Recorded Sex Assigned at Not on file Gender Identity Not on file Sexual Orientation Not on file documented as of this encounter Plan of Treatment Not on file documented as of this encounter Visit Diagnoses Not on filedocumented in this encounter
--- OUTSIDE RECORDS SUMMARY | 2024-07-19 00:15 | XMS_ITS | Continuity of Care Document ---
Author Organization [facility] Address [address] [place] [address] Phone Care Team Providers Care Supervisor [address] Name Role Phone No Information Unavailable Unavailable Medications Medication Instructions Dosage Effective Dates (start - stop) Status Comments DARVOCET-N 100 100-650 MGTABLET ONE PO EVERY 8 HRS PRN - Active DARVOCET-N 100 100-650 MGTABLET ONE PO EVERY 6- 8 HRS PRN - Active DARVOCET-N 100 100-650 MGTABLET - Active Procedures Procedure Date X-ray exam of foot, complete X-ray exam of foot, complete X-ray exam of foot, complete Office/outpatient visit,[facility] 2008 Treat metatarsal fracture X-ray exam of foot, complete Advance Directives Directive Yes / No Effective Date File Name No Information Encounters Encounter Description Practice Location Reason(s) For Visit Diagnoses Date Provider Providers Copied on Encounter [facility], [address] [place], [place], [id number], tel:[phone] No Information 9 No Information [facility], [address] [place] [address], [id number], tel:[phone] [facility] No Information 9 Mark Tiwari. [address] [place], [place], [id number], . tel:[phone] Referring Provider: Pauly Maher, [address] [place], [address] . tel:[phone] [facility], [address] [place] [address], [id number], tel:[phone] [facility] No Information Jan-3 0-200 9 Sameer Kang. [address] [place] [address], [id number], . tel:[phone] Referring Provider: Pauly Maher, [address] [facility] [place], [address] . tel:[phone] [facility], [address] [place] [address], [id number], tel:[phone] [facility] No Information 2 2-200 9 Viral Marinelli. [address] [place] [address], [id number], . tel:[phone] Referring Provider: Pauly Maher, [address] [facility] [place], [address] . tel:[phone] [facility], [address] [place] [address], [id number], tel:[phone] [facility] No Information Jan-0 9-200 9 Erthall Te. [address] [place] [address], [id number], . tel:[phone] Referring Provider: Pauly Maher, [address] [facility] [place], [address] . tel:[phone] [facility], [address] [place] [address], [id number], tel:[phone] [facility] No Information Jan-0 6-200 9 Viral Marinelli. [address] [place] [address], [id number], . tel:[phone] Referring Provider: Pauly Maher, [address] [facility] [place], [address] . tel:[phone] Office/outpat ient visit,[facility], [facility], [address] [place] [address], [id number], tel:[phone] [facility] No Information 9 Mark Tiwari. [address] [facility] [place], [place], [id number], [place]. tel:[phone] Referring Provider: Pauly Maher, [address] [place], [address] . tel:[phone] Family History Family Member Type Diagnosis Age At Onset No Information Payers Payer name Insurance type Covered constitution party ID Authoravinasha benedict(s) [facility] CI [id number] Social History Type Description Quantity Date Captured [...]
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
--- OUTSIDE RECORDS SUMMARY | 2024-07-19 00:16 | XMS_ITS | Continuity of Care Document ---
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 Plan of Treatment Reminders Order Date Submit Date Provider Last Modified By Organization Details Last Modified Time Details Appointments None recorded. Lab None recorded. Referral None recorded. Procedures None recorded. Surgeries None recorded. Imaging MAMMO, screening, bilateral [address] [facility], [address], [place] [address], [place], [address], 08:13:13 Medication Orders albuterol sulfate HFA 90 mcg/actuati on aerosol inhaler 2023 [facility] [place], [address], 4 17:29:05 azithromyci n 250 mg tablet 2023 [facility], [address] [place], [address], 4 17:29:07 Patient TargetsNo targets recorded. Patient InstructionsNo instructions recorded. Reason for Referral None Reported. Results Created Date Observation Date Name Description Value Unit Range Abnormal Flag Note LastModifiedBy Organization Detail LastModifiedTime 04/25/20 24 04/24/2024 XR, tibia + fibul a, 2 view No observ ation record ed. [facility] [address], [place], [address], 04/27/2024 08:40:02 Result Notes None recorded. Problems Name Problem SNOMED Code Status Onset Date Resolution Date Notes Provider Name and Address Organization Details Recorded Time Acute pharyngi tis 329247511 Completed 201609/05/2017 SILVER Alvarez NP Attn: Saira vee,[address] [facility], [place], [address], [place] [facility] 8 11:51:50 Hyperlip idemia 57291680 Active 2017 OLIVIER FUNES Attn: Saira vee,[address] [place], [address], [place] [facility] 2 11:55:35 Low back pain 059087727 Active 2017 SILVER Alvarez NP Attn: Saira vee,[address] [place], [address], [place] [facility] 8 11:51:22 Secondar y hypothyr oidism 58620434 Active 2017 SILVER Alvarez NP Attn: Saira vee,[address] [place], [address], [place] [facility] 8 11:51:23 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 SILVER Alvarez NP Attn: Saira vee,[address] [facility], [place], [address], [place] [facility] 8 11:51:45 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 OLIVIER FUNES Attn: Saira vee,[address] [place], [address], [place] [facility] 2 10:16:51 Neuropat hy 716212926 Active 2021 OLIVIER FUNES Attn: Saira vee,[address] [facility], [place], [address], [place] [facility] 2 10:29:10 Cramp in lower limb 018159315 Active 2021 OLIVIER UFNES Attn: Saira vee,[address] [facility], [place], [address], [place] [facility] 2 10:29:03 [facility] hyperten june 08595767 Active 2021 OLIVIER FUNES Attn: Accountkarin vee,[address] [facility], [place], [address], [place] [facility] 2 10:29:05 Insomnia 451893867 Active 2021 OLIVIER FUNES Attn: Saira vee,[address] [facility], [place], [address], [place] [facility] 2 10:29:08 Tobacco dependen ce syndrome 31021516 Active 2021 OLIVIER FUNES Attn: Saira vee,[address] [facility], [place], [address], [place] [facility] 2 10:29:13 Vitamin D deficien cy 56681463 Active 2021 OLIVIER FUNES Attn: Saira vee,[address] [facility], [place], [address], [place] [facility] 2 11:56:15 Screenin g for malignan t neoplasm of colon Active 2022 cologuard negative 12/2022, repeat 12/2025 OLIVIER FUNES Attn: Accountin g,[address] [facility], [place], [address], [place] [facility] 3 09:50:45 Problem Notes None recorded. Procedures Surgical History Date Name Laterality Status Provider Name and Address Organization Details Recorded Time Tubal Ligation completed Laura chirinos CMA [place] [facility] 12/27/2016 11:47:47 Imaging Results None recorded. Procedure [...] Not available Not available Not available 05/26/2024 [id number] SNOMED OLIVIER FUNES Attn: Saira vee,[address] [facility], [place], [address], [facility] 4 08:54:27 Medications [...] Not Available Not Available Not Avai lable promethazi ne-DM 6.25 mg-15 mg/5 mL oral syrup [...] propionate 50 mcg/actuat ion nasal spray,susp ension Early 1 spray every day by intranas al [...] Not Available Vitals Date Recorded Body height Provider Name an d Address Organization Details Last Updated DateTime 05/25/2024 163.83 cm Gillian Joanna [facility] 05/25/2024 17:13:43 Date Recorded Body temperature Heart rate Oxygen saturation Oxygen saturation in Arterial blood by Pulse oximetry Respiratory rate Systolic blood pressure Diastolic blood pressure Provider Name and Address Organization Details Last Updated DateTime 4 98 [degF] 89 /min 100 % 100 % 18 /min 120 mm[Hg] 80 mm[Hg] OLIVIER FUNES Attn: Saira vee,[address] [facility], [place], [address], [facility] 4 17:24:47 Social History Question Answer Notes LastModified by Organizat ion Details LastModified Time Tobacco Smoking Status Current Every Day Smoker Laura Carrero CMA null, [facility] 12/27/2016 11:49:17 Do You Have An Advance Directive? No Information not available 12/27/2016 What Is Your Level Of Alcohol Consumption? None Information not available 12/27/2016 Are You Blind Or Do You Have Difficulty Seeing? Yes Information not available 06/04/2021 What Is Your Level Of Caffeine Consumption? Heavy Coffee [email or web address] Information not available 12/13/2020 How Much Tobacco Do You Chew? None Information not available 09/28/2019 In The 14 Days Before Symptom Onset, Have You Had Close Contact With A Laboratory-confi rmed COVID-19 While That Case Was Ill? No [email or web address] Information not available 12/13/2020 In The 14 Days Before Symptom Onset, Have You Had Close Contact With A Person Who Is Under Investigation For COVID-19 While That Person Was Ill? No [email or web address] Information not available 12/13/2020 Have You Been To An Area Known To Be High Risk For COVID-19? No [email or web address] Information not available 12/13/2020 Are You Currently Employed? Yes Information not available 09/28/2019 Are You Deaf Or Do You Have Serious Difficulty Hearing? No [email or web address] Information not available 12/13/2020 What Type Of Diet Are You Following? REGULAR Information not available 12/27/2016 Which Illicit Or Recreational Drugs Have You Used? None Information not available 12/27/2016 Do You Or Have You Ever Used E-cigarettes Or Vape? Never Used Electronic Cigarettes Information not available 09/28/2019 Education 2 Year College Information not available 09/28/2019 What Is Your Occupation? Certified [employer] Information not available 09/28/2019 Are There Any [...] Seat Belt Or Car Seat Routinely? Yes [email or web address] Information not available 12/13/2020 Are You Sexually Active? No Information not available 12/27/2016 Do You Have Smoke And Carbon Monoxide Detectors In Your Home? Yes [email or web address] Information not available 12/13/2020 At What Age [...] Anxious, Or Unable To Sleep At Night)? [id number] Information not available 06/04/2021 Do You Use Any Illicit Or Recreational Drugs? Yes Mariasha [email or web address] Information not available 12/13/2020 Do You Use Sunscreen Routinely? No Information not available 12/27/2016 On What Date Was Tobacco Cessation Counseling Provided? 04/16/2024 Information not available 04/16/2024 How Many Years Have You Smoked Tobacco? 20 Information not available 12/27/2016 Do You Or Have You Ever Used Any Other Forms Of Tobacco Or Nicotine? No [email or web address] Information not available 12/13/2020 Sex: Female Functional [...] 2016 11:49:05 Father Malignant tumor of lung [email or web address] Not available 12/13 16:35:35 Paternal Uncle Diabetes mellitus [email or web address] Not available 12/13 16:35:43 Paternal Uncle Myocardial infarction [email or web address] Not available 11/19 16:36:02 Maternal Uncle Myocardial infarction [email or web address] Not available 11/19 16:36:02 Medical History Condition Response Coronary Artery Disease N Other N High Blood Pressure Y Atrial Fibrillation N Thyroid Problems N Kidney or Bladder Problems N GI Problems N Depression N COPD N Blood Clots N Skin Problems N Eating Disorder N Anemia N Heart Attack (ID) N Anxiety Disorder Y Diabetes N Muscle, Joint, or Bone Problems Y Seizures/Epilepsy N Acid Reflux (GERD) N Cancer N Stroke N Asthma N Allergies N ADHD N Substance Abuse N High Cholesterol N Hepatitis N Liver Disease N Schizophrenia N Headaches N Heart Failure N Osteoporosis N Gynecological History Statement/Question Response Date of Last Pap Smear Age at Menarche 14 Current Control Method Tubal Ligat ion Date of Last Mammogram Obstetrics History GPAL:G 1 P 1 0 0 1 Type Value Multiple Births 0 Full Term 1 Induced 0 Spontaneous 0 Premature 0 Living 1 Ectopics 0 Total 1 Immunizations Vaccine Type Date Status Note Provider Nam e and Address Organization Details Recorded Time influenza, [...] influenza, unspecified formulation 04/23/2013 completed Laura Carrero [place], [place] [facility] 11/25/2016 09:49:53 pneumococcal, unspecified formulation 04/23/2013 completed Laura Carrero 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 [place] [facility] 11/25/2016 09:50:04 Tdap 04/23/2013 completed Laura AlfaroSAIMA chirinos [place], [place] [facility] 11/25/2016 09:50:13 Past Encounters Encounter ID Performer Location Encounter Start Date Encounter Closed Date Diagnosis/Indication Diagnosis SNOMED-CT Code Diagnosis ICD10 Code [id number] OLIVIER FUNES [facility] [address] [place] [address] 05/25/2024 16:18:35 05/25/2024 17:31:46 Bacterial upper respiratory infection 751941429 J06.9 Tight chest 63953656 R07 .89 Screening for malignant neoplasm of breast 954416872 Z12.39 Health Concerns Section Related Observation LastModified by Organization Detai ls LastModified Time None Recorded Concern Status LastModified by Organization Details LastModified Time None Recorded Payers Encounter Date Sequence Insurance Name Policy Number Policy De Souza Covered Member ID De Souza Member ID Guarantor Name 05/25/2024 1 [place] [id number] Allison Gonzalez [id number] Allison Gonzalez Notes Date Note Type Note Provider Name and Address Organization Details Recorded Time 05/25/2024 text/html Pt presents with sore throat, congestion, dry cough, and chest tightness for the past 8 days. 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 Denies COVID or flu outbreak. She has been taking tylenol, robitussin, and mucinex w/o relief. Unknown fevers. OLIVIER FUNES Attn: Accounting,[address] [facility], [place], [address], [place] [facility] 05/26/2024 08:55:46 OBGyn Episode No OBEpisode recorded.
--- OUTSIDE RECORDS SUMMARY | 2024-07-19 00:16 | XMS_ITS | Data Portability ---
Author Organization [facility] [place] Address [address] [place] [address] Care Team Providers Care Loans Consultant Name Role Phone ZAIRA MARTINES Primary Care Provider Assessment No assessment recorded. Plan of Treatment Reminders Order Date Submit Date Provider Last Modified By Organization Details Last Modified Time Details Appointments None recorded. Lab noninvasive colorectal cancer DNA + occult blood screening, QL, stool 2022 023 [facility] (Cologuard Orders Only), [address], [address], [place], [address], 3 01:08:31 TSH + free T4, serum 2022 023 [facility], [address], [place], [address], 3 15:10:46 CMP, serum or plasma 2022 023 [facility], [address], [place], [address], 3 09:15:18 lipid panel, serum 2022 023 [facility], [address], [place], [address], 3 09:15:18 cytology report, thin prep, smear or scraping, cervical or vaginal 2022 023 [facility], [address], [place], [address], 3 15:16:40 bacterial vaginosis score, SUN+probe, vaginal fluid (OBS) 2022 023 [facility], [address], [place], [address], 3 15:10:45 CMP, serum or plasma 2023 024 [facility], [address], [place], [address], 4 10:15:43 lipid panel, serum 2023 024 [facility], [address], [place], [address], 4 10:15:42 CBC w/ auto diff 2023 024 [facility], [address], [place], [address], 4 10:15:45 TSH + free T4, serum 2023 024 [facility], [address], [place], [address], 4 10:15:42 HbA1c (hemoglobin A1c), blood 2023 024 [facility], [address], [place], [address], 4 10:15:44 vitamin B12 + folate, serum or blood 2023 024 [facility], [address], [place], [address], 4 10:15:44 vitamin D, 25-hydroxy, total, serum 2023 024 [facility], [address], [place], [address], 4 10:15:45 Referral obstetricia n and gynecologis t referral 2023 [facility]24 [facility], [address], [place], [address], 4 13:04:20 Procedures None recorded. Surgeries None recorded. Imaging MAMMO, screening, bilateral [id number] [facility], [address] [place] [address] , [place], [address], 3 10:35:04 polysomnogr am [email or web address] [facility], [address] [place], [address], 4 07:56:05 MAMMO, screening, bilateral [email or web address] [facility], [address], [place], [address], 4 08:13:13 Medication Orders amitriptyli ne 150 mg tablet 2022 023 [facility], [address] [place], [address], 3 10:26:10 atorvastati n 40 mg tablet 2022 023 [facility], [address] [place], [address], 3 10:26:10 cyclobenzap rine 10 mg tablet 2022 023 [facility], [address] [place], [address], 4 14:19:24 hydrochloro thiazide 25 mg tablet 2022 023 [facility], [address] [place], [address], 3 10:26:09 amlodipine 10 mg tablet 2022 023 [facility], [address] [place] [address], [address], 3 10:26:09 gabapentin 300 mg capsule 2022 023 [facility], [address] [place] [address], [address], 3 10:26:09 baclofen 10 mg tablet 2023 024 [facility], [address] [place] [address], [address], 4 16:53:38 amitriptyli ne 150 mg tablet 2023 024 [facility], [address] [place] [address], [address], 4 16:53:40 atorvastati n 40 mg tablet 2023 024 [facility], [address] [place] [address], [address], 4 16:53:39 baclofen 10 mg tablet 2023 024 [facility], [address] [place] [address], [address], 4 14:18:57 amlodipine 10 mg tablet 2023 024 [facility], [address] [place] [address], [address], 4 14:26:05 hydrochloro thiazide 25 mg tablet 2023 [facility], [address] [place], [address], 14:26:06 albuterol sulfate HFA 90 mcg/actuati on aerosol inhaler 2023 024 [facility], [address] [place], [address], 17:29:05 azithromyci n 250 mg tablet 2023 [facility], [address] [place], [address], 17:29:07 Patient TargetsNo targets recorded. Patient Instructions Encounter Date Encounter Id Patient Instructions Last Modified By Organization Details Last Modified Time 12/31/2022 [id number] Quitting Tobacco : Care Instructions [email or web address] Not available 12/31/2022 11:27:17 04/15/2023 [id number] I have reviewed the patient's medical record and the note from this clinical encounter. I was available by phone for the duration of the visit. I agree with the assessment and plan with the following addendum: If she has any additional vaginal bleeding would do pelvic ultrasound and send for EMB. Agree with getting her off of Amitriptyline - Not helping with her BP either. . Reginald Valles MD [email or web address] Not available 04/15/2023 13:14:45 04/16/2024 [id number] A healthy lifestyle: care instructions [email or web address] Not available 04/16/2024 14:06:37 Reason for Referral [facility] Referral for Low grade squamous intraepithelial lesion on cervical Papanicolaou smear Referring Physician: Zaira Martines, Family Medicine, Encounter Date: 08/15/2023 Results Created Date Observation Date Name Description Value Unit Range Abnormal Flag Note LastModifiedBy Organization Detail LastModifiedTime 01/07/20 23 01/06/2023 COLOG UARD cologuard result reportable Negati ve negati ve NEGAT YONG TEST RESUL T. A negat yong Colog uard resul t indic ates a low likel ihood that a color ectal cance r (CRC) or advan aden adeno ma (lucero omato us polyp s with more advan aden pre-m align ant featu res) is prese nt. The chanc e that a perso n with a negat yong Colog uard test has a color ectal cance r is less than 1 in 1500 (nega tive predi ctive value >99.9 %) or has an advan aden adeno ma is less than 5.3% (nega tive predi ctive value 94.7% ). These data are based on a prosp ectiv e cross -sect ional study of ,00 0 indiv idual s at [place] ge risk for color ectal cance r who were scree sigifredo with both Colog uard and colon oscop y. (Jonathan Bennett et al, N Engl J Med 2014; 370(1 4):12 86-12 97) The lizbeth l value (refe rence range ) for this assay is negat yong. COLOG UARD RE-SC WILFREDO BOSCH RECOM MENDA TION: Perio dic color ectal cance r scree tatianna is an impor tant part of preve ntive healt hcare for asymp tomat ic indiv idual s at [place] ge risk for color ectal cance r. Follo wing a negat yong Colog uard resul t, the Ameri can Cance r Socie ty and U.S. Multi -Soci ety Task Force scree tatianna guide lines recom mend a Colog uard re-sc reeavinash ng inter polly of 3 years . Refer ences : Ameri can Cance r Socie ty Guide line for Color ectal Cance r Scree tatianna: https ://danilo w.can cer.o rg/ca ncer/ colon -rect al-ca ncer/ detec tion- diagn osis- stagi ng/ac s-rec ommen datio ns.ht ml.; Alexander BROWN, Rachel chow CR, Louise DomínguezK, Color ectal Cance r Scree tatianna: Recom menda tions for Physi cians and Patie nts from the U.S. Multi -Soci ety Task Force on Color ectal Cance r Screcandis campuzano , Am J Juan Manuel schmidtnte rolog y 2017; 112:1 016-1 030. TEST DESCR IPTIO N: [place] site algor ithmi c rene sis of stool DNA-b diana baca with hemog lobin immun oassa y. Quant itati ve value s of indiv idual bioma rkers are not repor table and are not assoc iated with indiv idual bioma rker resul t refer ence range s. Colog uard is inten ded for color ectal cance r scree tatianna of adult s of eithe r sex, 45 years or older , who are at [facility] for color ectal cance r (CRC) . Colog uard has been appro angel for use by the U.S. FDA. The perfo rmanc e of Colog uard was estab lishe d in a cross secti onal study of [facility] adult s aged 50-84 . Colog uard perfo rmanc e in patie nts ages 45 to 49 years was estim ated by sub-g roup rene sis of near- age group s. Colon oscop ies perfo rmed for a posit yong resul t may find as the most clini adriane signi trevor t lesio n: color ectal cance r [4.0% ], advan aden adeno ma (incl uding sessi le neal alexus polyp s great er than or equal to 1cm diame ter) [20%] or non- advan aden adeno ma [31%] ; or no color ectal neopl eloina [45%] . These estim ates are deriv ed from a prosp ectiv e cross -sect ional scree tatianna study of 10,00 0 indiv idual s at [facility] risk for color ectal cance r who were scree sigifredo with both Colog uard and colon oscop y. (Jonathan Rubalcava al, N Engl J Med 2014; 370(1 4):12 86-12 97.) Colog uard may produ ce a false negat yong or false posit yong resul t (no color ectal cance r or preca ncero us polyp prese nt at colon oscop y follo w up). A negat yong Colog uard test resul t does not guara ntee the absen ce of CRC or advan aden adeno ma (pre- cance r). The curre nt Colog uard scree tatianna inter polly is every 3 years . (Ampaco ican Cance r Socie ty and U.S. Multi -Soci ety Task Force ). Colog uard perfo rmanc e data in a 10,00 0 patie nt pivot al study using colon oscop y as the refer ence metho d can be acces sed at the follo wing locat ion: www.e xactl abs.c om/re sults . Addit ional descr iptio n of the Colog uard test proce ss, warni ngs and preca ution s can be found at www.c ologariana donald.c om. Not Available [facility] (Cologuard Orders Only) [address], [place], [address], 01/16/2023 01:08:31 04/15/20 23 04/16/2023 LIPID PANEL WITH LDL/H DL RATIO cholesterol, total 147 mg/dL 100-19 9 Not Available [facility] ([facility]) [address] [place], [address], 04/16/2023 09:15:18 04/15/20 23 04/16/2023 LIPID PANEL WITH LDL/H DL RATIO triglyceride s 76 mg/dL 0-149 Not Available [facility] ([facility]) [address] [place], [address], 04/16/2023 09:15:18 04/15/20 23 04/16/2023 LIPID PANEL WITH LDL/H DL RATIO HDL cholesterol 61 mg/dL >39 Not Available [facility] ([facility]) [address] [place], [address], 04/16/2023 09:15:18 04/15/20 23 04/16/2023 LIPID PANEL WITH LDL/H DL RATIO VLDL cholesterol pauline 15 mg/dL 5-40 Not Available [facility] ([facility]) [address] [facility], [place], [address], 04/16/2023 09:15:18 04/15/20 23 04/16/2023 LIPID PANEL WITH LDL/H DL RATIO LDL chol calc ([facility]) 71 mg/dL 0-99 Not Available [facility] ([facility]) [address] [facility], [place], [address], 04/16/2023 09:15:18 04/15/20 23 04/16/2023 LIPID PANEL WITH LDL/H DL RATIO LDL/HDL ratio 1.2 ratio 0.0-3. 2 LDL/H DL Ratio Men Women 1/2 Avg.R isk 1.0 1.5 Avg.R isk 3.6 3.2 2X Avg.R isk 6.2 5.0 3X Avg.R isk 8.0 6.1 Not Available [facility] ([facility]) [address] [facility], [place], [address], 04/16/2023 09:15:18 04/15/20 23 04/16/2023 COMP. METAB OLIC PANEL (14) glucose 93 mg/dL 70-99 Not Available [facility] ([facility]) [address] [place], [address], 04/16/2023 09:15:18 04/15/20 23 04/16/2023 COMP. METAB OLIC PANEL (14) BUN 15 mg/dL 6-24 Not Available [facility] ([facility]) [address] [place], [address], 04/16/2023 09:15:18 04/15/20 23 04/16/2023 COMP. METAB OLIC PANEL (14) creatinine 0.97 mg/dL 0.57-1 .00 Not Available [facility] ([facility]) [address] [place], [address], 04/16/2023 09:15:18 04/15/20 23 04/16/2023 COMP. METAB OLIC PANEL (14) eGFR 67 mL/mi n/1.7 3 >59 Not Available [facility] ([facility]) [address] [facility], [place], [address], 04/16/2023 09:15:18 04/15/20 23 04/16/2023 COMP. METAB OLIC PANEL (14) BUN/creatini ne ratio 15 9-23 Not Available [facility] ([facility]) [address] [facility], [place], [address], 04/16/2023 09:15:18 04/15/20 23 04/16/2023 COMP. METAB OLIC PANEL (14) sodium 142 mmol/ L 134-14 4 Not Available [facility] ([facility]) [address] [facility], [place], [address], 04/16/2023 09:15:18 04/15/20 23 04/16/2023 COMP. METAB OLIC PANEL (14) potassium 4.3 mmol/ L 3.5-5. 2 Not Available [facility] ([facility]) [address] [facility], [place], [address], 04/16/2023 09:15:18 04/15/20 23 04/16/2023 COMP. METAB OLIC PANEL (14) chloride 105 mmol/ L 96-106 Not Available [facility] ([facility]) [address] [facility], [place], [address], 04/16/2023 09:15:18 04/15/20 23 04/16/2023 COMP. METAB OLIC PANEL (14) carbon dioxide, total 23 mmol/ L 20-29 Not Available [facility] ([facility]) [address] [place], [address], 04/16/2023 09:15:18 04/15/20 23 04/16/2023 COMP. METAB OLIC PANEL (14) calcium 9.1 mg/dL 8.7-10 .2 Not Available [facility] ([facility]) [address] [facility], [place], [address], 04/16/2023 09:15:18 04/15/20 23 04/16/2023 COMP. METAB OLIC PANEL (14) protein, total 6.1 g/dL 6.0-8. 5 Not Available [facility] ([facility]) [address] [facility], [place], [address], 04/16/2023 09:15:18 04/15/20 23 04/16/2023 COMP. METAB OLIC PANEL (14) albumin 4.1 g/dL 3.8-4. 9 Not Available [facility] ([facility]) [address], [place], [address], 04/16/2023 09:15:18 04/15/20 23 04/16/2023 COMP. METAB OLIC PANEL (14) globulin, total 2.0 g/dL 1.5-4. 5 Not Available [facility] ([facility]) [address] [facility], [place], [address], 04/16/2023 09:15:18 04/15/20 23 04/16/2023 COMP. METAB OLIC PANEL (14) A/G ratio 2.1 1.2-2. 2 Not Available [facility] ([facility]) [address] [facility], [place], [address], 04/16/2023 09:15:18 04/15/20 23 04/16/2023 COMP. METAB OLIC PANEL (14) bilirubin, total <0.2 mg/dL 0.0-1. 2 Not Available [facility] ([facility]) [address] [facility] [place], [address], 04/16/2023 09:15:18 04/15/20 23 04/16/2023 COMP. METAB OLIC PANEL (14) alkaline phosphatase 114 IU/L 44-121 Not Available [facility] ([facility]) [address] [place], [address], 04/16/2023 09:15:18 04/15/20 23 04/16/2023 COMP. METAB OLIC PANEL (14) AST (SGOT) 34 IU/L 0-40 Not Available [facility] ([facility]) [address] [place], [address], 04/16/2023 09:15:18 04/15/20 23 04/16/2023 COMP. METAB OLIC PANEL (14) ALT (SGPT) 50 IU/L 0-32 above high normal Not Available [facility] ([facility]) [address] [place], [address], 04/16/2023 09:15:18 04/15/20 23 04/17/2023 IGP, APTIM A HPV, RFX 16/18 ,45 diagnosis: Commen t abnormal EPITH ELIAL CELL ABNOR MALIT Y. LOW GRADE SQUAM OUS INTRA EPITH ELIAL LESIO N (LSIL ). CELLU LAR QUINONES ES ASSOC IATED WITH ATROP HY ARE PRESE NT. Not Available [facility] ([facility]) [address] [place], [address], 04/17/2023 15:16:40 04/15/20 23 04/17/2023 IGP, APTIM A HPV, RFX 16/18 ,45 recommendati on: Commen t abnormal Sugge st follo w up as clini adriane appro priat e. Not Available [facility] ([facility]) [address] [place], [address], 04/17/2023 15:16:40 04/15/20 23 04/17/2023 IGP, APTIM A HPV, RFX 16/18 ,45 specimen adequacy: Commen t Satis facto ry for evalu ation . Endoc ervic al compo nent may not be disti nguis hed in cases of atrop hy. Not Available [facility] ([facility]) [address] [facility], [place], [address], 04/17/2023 15:16:40 04/15/20 23 04/17/2023 IGP, APTIM A HPV, RFX 16/18 ,45 clinician provided ICD10: Vimal ta Z12.4 Not Available [facility] ([facility]) [address] [facility], [place], [address], 04/17/2023 15:16:40 04/15/20 23 04/17/2023 IGP, APTIM A HPV, RFX 16/18 ,45 performed by: Coco Cotaor y Cytot echno mary t (ASCP ) Not Available [facility] ([facility]) [address] [facility], [place], [address], 04/17/2023 15:16:40 04/15/20 23 04/17/2023 IGP, APTIM A HPV, RFX 16/18 ,45 electronical ly signed by: Vimal Parker MD, Patho logis t Not Available [facility] ([facility]) [address] [facility], [place], [address], 04/17/2023 15:16:40 04/15/20 23 04/17/2023 IGP, APTIM A HPV, RFX 16/18 ,45 . . Not Available [facility] ([facility]) [address] [facility], [place], [address], 04/17/2023 15:16:40 04/15/20 23 04/17/2023 IGP, APTIM A HPV, RFX 16/18 ,45 pathologist provided ICD10: Vimal ta R87.6 12 Not Available [facility] ([facility]) [address] [facility], [place], [address], 04/17/2023 15:16:40 04/15/20 23 04/17/2023 IGP, APTIM A HPV, RFX 16/18 ,45 note: Commen t The Pap smear is a scree tatianna test desig sigifredo to aid in the detec tion of neftaly ligna nt and malig nant condi tions of the uteri ne cervi x. It is not a diagn ostic proce dure and shoul d not be used as the sole means of detec ting cervi pauline cance r. Both false -posi tive and false -nega tive repor ts do occur . Not Available [facility] ([facility]) [address] [place], [address], 04/17/2023 15:16:40 04/15/2004/17/2023 IGP, APTIM A HPV, RFX 16/18 ,45 test methodology: Commen t This liqui d based ThinP rep(R ) pap test was scree sigifredo with the use of an image guide geraldo middleton. Not Available [facility] ([facility]) [address] [facility], [place], [address], 04/17/2023 15:16:40 04/15/20 23 04/17/2023 IGP, APTIM A HPV, RFX 16/18 ,45 HPV aptima Positi ve negati ve abnormal This nucle ic acid ampli ficat ion test detec ts fourt een high- risk HPV types (16,1 8,31, 33,35 ,39,4 5,51, 52,56 ,58,5 9,66, 68) witho ut diffe renti ation . Not Available [facility] ([facility]) [address] [facility], [place], [address], 04/17/2023 15:16:40 04/15/20 23 04/17/2023 IGP, APTIM A HPV, RFX 16/18 ,45 HPV genotype reflex Commen t Crite luis daniel not met, HPV Genot ype not perfo rmed. Not Available [facility] ([facility]) [address] [place], [address], 04/17/2023 15:16:40 04/15/20 23 04/16/2023 TSH+F REE T4 TSH 1.120 uIU/m L 0.450- 4.500 Not Available [facility] ([facility]) [address] [facility], [place], [address], 04/22/2023 15:10:46 04/15/20 23 04/16/2023 TSH+F REE T4 T4,free(dire ct) 0.84 NG/dL 0.82-1 .77 Not Available [facility] ([facility]) [address] [facility], [place], [address], 04/22/2023 15:10:46 04/15/2004/22/2023 NUSWA B VG+, HSV atopobium vaginae Low - 0 score Not Available [facility] ([facility]) [address] [facility], [place], [address], 04/22/2023 15:10:45 04/15/20 23 04/22/2023 NUSWA B VG+, HSV bvab 2 Low - 0 score Not Available [facility] ([facility]) [address] [facility], [place], [address], 04/22/2023 15:10:45 04/15/20 23 04/22/2023 NUSWA B VG+, HSV megasphaera 1 Low - 0 score Calcu late total score by yelitza vee the 3 indiv idual bacte rial vagin osis (BV) marke r score s toget her. Total score is inter prete d as follo ws: Total score 0-1: Indic ates the absen ce of BV. Total score 2: Indet ermin ate for BV. Addit ional clini pauline data shoul d be evalu ated to estab quinn a diagn osis. Total score 3-6: Indic ates the prese nce of BV. This test was devel oped and its perfo rmanc e nicolas cteri stics deter mined by [facility]. It has not been clear ed or appro angel by the Food and Drug Admin istra tion. Not Available [facility] ([facility]) [address] [facility], [place], [address], 04/22/2023 15:10:45 04/15/20 23 04/22/2023 NUSWA B VG+, HSV napoleon albicans, SUN Negati ve negati ve Not Available [facility] ([facility]) [address] [facility], [place], [address], 04/22/2023 15:10:45 04/15/20 23 04/22/2023 NUSWA B VG+, HSV napoleon glabrata, SUN Negati ve negati ve Not Available [facility] ([facility]) [address] [facility], [place], [address], 04/22/2023 15:10:45 04/15/20 23 04/22/2023 NUSWA B VG+, HSV trich vag by SUN Negati ve negati ve Not Available [facility] ([facility]) [address] [facility], [place], [address], 04/22/2023 15:10:45 04/15/20 23 04/22/2023 NUSWA B VG+, HSV chlamydia trachomatis, SUN Negati ve negati ve Not Available [facility] ([facility]) [address] [facility], [place], [address], 04/22/2023 15:10:45 04/15/20 23 04/22/2023 NUSWA B VG+, HSV neisseria gonorrhoeae, SUN Negati ve negati ve Not Available [facility] ([facility]) [address] [facility], [place], [address], 04/22/2023 15:10:45 04/15/20 23 04/22/2023 NUSWA B VG+, HSV hsv 1 SUN Negati ve negati ve Not Available [facility] ([facility]) [address] [place], [address], 04/22/2023 15:10:45 04/15/20 23 04/22/2023 NUSWA B VG+, HSV hsv 2 SUN Negati ve negati ve Not Available [facility] ([facility]) [address] [facility], [place], [address], 04/22/2023 15:10:45 04/16/20 24 04/17/2024 TSH+F REE T4 TSH 0.890 uIU/m L 0.450- 4.500 Not Available [facility] ([facility]) [address] [facility], [place], [address], 04/17/2024 10:15:42 04/16/20 24 04/17/2024 TSH+F REE T4 T4,free(dire ct) 0.94 NG/dL 0.82-1 .77 Not Available [facility] ([facility]) [address] [place], [address], 04/17/2024 10:15:42 04/16/20 24 04/17/2024 LIPID PANEL WITH LDL/H DL RATIO cholesterol, total 168 mg/dL 100-19 9 Not Available [facility] ([facility]) [address] [place], [address], 04/17/2024 10:15:42 04/16/20 24 04/17/2024 LIPID PANEL WITH LDL/H DL RATIO triglyceride s 120 mg/dL 0-149 Not Available [facility] ([facility]) [address] [place], [address], 04/17/2024 10:15:42 04/16/20 24 04/17/2024 LIPID PANEL WITH LDL/H DL RATIO HDL cholesterol 61 mg/dL >39 Not Available [facility] ([facility]) [address] [place], [address], 04/17/2024 10:15:42 04/16/20 24 04/17/2024 LIPID PANEL WITH LDL/H DL RATIO VLDL cholesterol pauline 21 mg/dL 5-40 Not Available [facility] ([facility]) [address] [place], [address], 04/17/2024 10:15:42 04/16/20 24 04/17/2024 LIPID PANEL WITH LDL/H DL RATIO LDL chol calc ([facility]) 86 mg/dL 0-99 Not Available [facility] ([facility]) [address] [facility], [place], [address], 04/17/2024 10:15:42 04/16/20 24 04/17/2024 LIPID PANEL WITH LDL/H DL RATIO LDL/HDL ratio 1.4 ratio 0.0-3. 2 LDL/H DL Ratio Men Women 1/2 Avg.R isk 1.0 1.5 Avg.R isk 3.6 3.2 2X Avg.R isk 6.2 5.0 3X Avg.R isk 8.0 6.1 Not Available [facility] ([facility]) [address] [place], [address], 04/17/2024 10:15:42 04/16/20 24 04/17/2024 COMP. METAB OLIC PANEL (14) glucose 107 mg/dL 70-99 above high normal Not Available [facility] ([facility]) [address] [place], [address], 04/17/2024 10:15:43 04/16/20 24 04/17/2024 COMP. METAB OLIC PANEL (14) BUN 14 mg/dL 8-27 Not Available [facility] ([facility]) [address] [place], [address], 04/17/2024 10:15:43 04/16/20 24 04/17/2024 COMP. METAB OLIC PANEL (14) creatinine 0.84 mg/dL 0.57-1 .00 Not Available [facility] ([facility]) [address] [place], [address], 04/17/2024 10:15:43 04/16/20 24 04/17/2024 COMP. METAB OLIC PANEL (14) eGFR 80 mL/mi n/1.7 3 >59 Not Available [facility] ([facility]) [address] [facility], [place], [address], 04/17/2024 10:15:43 04/16/20 24 04/17/2024 COMP. METAB OLIC PANEL (14) BUN/creatini ne ratio 17 12-28 Not Available [facility] ([facility]) [address] [facility], [place], [address], 04/17/2024 10:15:43 04/16/20 24 04/17/2024 COMP. METAB OLIC PANEL (14) sodium 139 mmol/ L 134-14 4 Not Available [facility] ([facility]) [address] [facility], [place], [address], 04/17/2024 10:15:43 04/16/20 24 04/17/2024 COMP. METAB OLIC PANEL (14) potassium 4.1 mmol/ L 3.5-5. 2 Not Available [facility] ([facility]) [address] [facility], [place], [address], 04/17/2024 10:15:43 04/16/20 24 04/17/2024 COMP. METAB OLIC PANEL (14) chloride 102 mmol/ L 96-106 Not Available [facility] ([facility]) [address] [facility], [place], [address], 04/17/2024 10:15:43 04/16/20 24 04/17/2024 COMP. METAB OLIC PANEL (14) carbon dioxide, total 21 mmol/ L 20-29 Not Available [facility] ([facility]) [address] [facility], [place], [address], 04/17/2024 10:15:43 04/16/20 24 04/17/2024 COMP. METAB OLIC PANEL (14) calcium 9.4 mg/dL 8.7-10 .3 Not Available [facility] ([facility]) [address] [place], [address], 04/17/2024 10:15:43 04/16/20 24 04/17/2024 COMP. METAB OLIC PANEL (14) protein, total 6.5 g/dL 6.0-8. 5 Not Available [facility] ([facility]) [address] [place], [address], 04/17/2024 10:15:43 04/16/20 24 04/17/2024 COMP. METAB OLIC PANEL (14) albumin 4.3 g/dL 3.8-4. 9 Not Available [facility] ([facility]) [address], [place], [address], 04/17/2024 10:15:43 04/16/20 24 04/17/2024 COMP. METAB OLIC PANEL (14) globulin, total 2.2 g/dL 1.5-4. 5 Not Available [facility] ([facility]) [address] [place], [address], 04/17/2024 10:15:43 04/16/20 24 04/17/2024 COMP. METAB OLIC PANEL (14) bilirubin, total 0.2 mg/dL 0.0-1. 2 Not Available [facility] ([facility]) [address] [place], [address], 04/17/2024 10:15:43 04/16/20 24 04/17/2024 COMP. METAB OLIC PANEL (14) alkaline phosphatase 104 IU/L 44-121 Not Available [facility] ([facility]) [address] [place], [address], 04/17/2024 10:15:43 04/16/20 24 04/17/2024 COMP. METAB OLIC PANEL (14) AST (SGOT) 36 IU/L 0-40 Not Available [facility] ([facility]) [address] [facility] [place], [address], 04/17/2024 10:15:43 04/16/20 24 04/17/2024 COMP. METAB OLIC PANEL (14) ALT (SGPT) 62 IU/L 0-32 above high normal Not Available [facility] ([facility]) [address] [facility] [place], [address], 04/17/2024 10:15:43 04/16/20 24 04/17/2024 VITAM IN B12 AND FOLAT E vitamin B12 737 pg/mL 232-12 45 Not Available [facility] ([facility]) [address] [place], [address], 04/17/2024 10:15:44 04/16/20 24 04/17/2024 VITAM IN B12 AND FOLAT E folate (folic acid), serum >20.0 NG/mL >3.0 A serum folat e nila ntrat ion of less than 3.1 ng/mL is consi dered to repre sent clini pauline defic iency . Not Available [facility] ([facility]) [address] [place], [address], 04/17/2024 10:15:44 04/16/20 24 04/17/2024 HEMOG LOBIN A1C hemoglobin A1C 6.4 % 4.8-5. 6 above high normal Predi abete s: 5.7 - 6.4 Diabe facundo: >6.4 Glyce adams contr ol for adult s with diabe facundo: <7.0 Not Available [facility] ([facility]) [address] [place], [address], 04/17/2024 10:15:44 04/16/20 24 04/17/2024 CBC WITH DIFFE RENTI AL/PL ATELE T WBC 9.1 x10e3 /uL 3.4-10 .8 Not Available [facility] ([facility]) [address] [place], [address], 04/17/2024 10:15:45 04/16/20 24 04/17/2024 CBC WITH DIFFE RENTI AL/PL ATELE T RBC 4.79 x10e6 /uL 3.77-5 .28 Not Available [facility] ([facility]) [address] [facility], [place], [address], 04/17/2024 10:15:45 04/16/20 24 04/17/2024 CBC WITH DIFFE RENTI AL/PL ATELE T hemoglobin 14.1 g/dL 11.1-1 5.9 Not Available [facility] ([facility]) [address] [facility], [place], [address], 04/17/2024 10:15:45 04/16/20 24 04/17/2024 CBC WITH DIFFE RENTI AL/PL ATELE T hematocrit 43.0 % 34.0-4 6.6 Not Available [facility] ([facility]) [address] [facility], [place], [address], 04/17/2024 10:15:45 04/16/20 24 04/17/2024 CBC WITH DIFFE RENTI AL/PL ATELE T MCV 90 fL 79-97 Not Available [facility] ([facility]) [address] [place], [address], 04/17/2024 10:15:45 04/16/20 24 04/17/2024 CBC WITH DIFFE RENTI AL/PL ATELE T MCH 29.4 pg 26.6-3 3.0 Not Available [facility] ([facility]) [address] [place], [address], 04/17/2024 10:15:45 04/16/20 24 04/17/2024 CBC WITH DIFFE RENTI AL/PL ATELE T MCHC 32.8 g/dL 31.5-3 5.7 Not Available [facility] ([facility]) [address] [place], [address], 04/17/2024 10:15:45 04/16/20 24 04/17/2024 CBC WITH DIFFE RENTI AL/PL ATELE T RDW 14.8 % 11.7-1 5.4 Not Available [facility] ([facility]) [address], [place], [address], 04/17/2024 10:15:45 04/16/20 24 04/17/2024 CBC WITH DIFFE RENTI AL/PL ATELE T platelets 208 x10e3 /uL 150-45 0 Not Available [facility] ([facility]) [address], [place], [address], 04/17/2024 10:15:45 04/16/20 24 04/17/2024 CBC WITH DIFFE RENTI AL/PL ATELE T neutrophils 62 % notest ab. Not Available [facility] ([facility]) [address], [place], [address], 04/17/2024 10:15:45 04/16/20 24 04/17/2024 CBC WITH DIFFE RENTI AL/PL ATELE T lymphs 28 % notest ab. Not Available [facility] ([facility]) [address], [place], [address], 04/17/2024 10:15:45 04/16/20 24 04/17/2024 CBC WITH DIFFE RENTI AL/PL ATELE T monocytes 6 % notest ab. Not Available [facility] ([facility]) [address], [place], [address], 04/17/2024 10:15:45 04/16/20 24 04/17/2024 CBC WITH DIFFE RENTI AL/PL ATELE T eos 3 % notest ab. Not Available [facility] ([facility]) [address], [place], [address], 04/17/2024 10:15:45 04/16/20 24 04/17/2024 CBC WITH DIFFE RENTI AL/PL ATELE T basos 1 % notest ab. Not Available [facility] ([facility]) [address] [facility], [place], [address], 04/17/2024 10:15:45 04/16/20 24 04/17/2024 CBC WITH DIFFE RENTI AL/PL ATELE T neutrophils (absolute) 5.7 x10e3 /uL 1.4-7. 0 Not Available [facility] ([facility]) [address] [facility], [place], [address], 04/17/2024 10:15:45 04/16/20 24 04/17/2024 CBC WITH DIFFE RENTI AL/PL ATELE T lymphs (absolute) 2.6 x10e3 /uL 0.7-3. 1 Not Available [facility] ([facility]) [address] [facility], [place], [address], 04/17/2024 10:15:45 04/16/20 24 04/17/2024 CBC WITH DIFFE RENTI AL/PL ATELE T monocytes(ab solute) 0.5 x10e3 /uL 0.1-0. 9 Not Available [facility] ([facility]) [address] [facility], [place], [address], 04/17/2024 10:15:45 04/16/20 24 04/17/2024 CBC WITH DIFFE RENTI AL/PL ATELE T eos (absolute) 0.3 x10e3 /uL 0.0-0. 4 Not Available [facility] ([facility]) [address] [place], [address], 04/17/2024 10:15:45 04/16/20 24 04/17/2024 CBC WITH DIFFE RENTI AL/PL ATELE T baso (absolute) 0.1 x10e3 /uL 0.0-0. 2 Not Available [facility] ([facility]) [address] [place], [address], 04/17/2024 10:15:45 04/16/20 24 04/17/2024 CBC WITH DIFFE RENTI AL/PL ATELE T immature granulocytes 0 % notest ab. Not Available [facility] ([facility]) [address] [facility], [place], [address], 04/17/2024 10:15:45 04/16/20 24 04/17/2024 CBC WITH DIFFE RENTI AL/PL ATELE T immature grans (abs) 0.0 x10e3 /uL 0.0-0. 1 Not Available [facility] ([facility]) [address] [facility], [place], [address], 04/17/2024 10:15:45 04/16/20 24 04/17/2024 VITAM IN D, 25-HY DROXY vitamin D, 25-hydroxy 26.5 NG/mL 30.0-1 00.0 below low normal Vitam in D defic iency has been defin ed by the Insti tute of Medic ine and an Endoc rine Socie ty pract ice guide line as a level of serum 25-OH vitam in D less than 20 ng/mL (1,2) . The Endoc rine Socie ty went on to furth er defin e vitam in D insuf ficie ncy as a level betwe en 21 and 29 ng/mL (2). 1. IOM (Inst itute of Medic ine). 2009. Dieta ry refer ence chris es for calci um and D. Alyx day [place]: The Natio nal [employer] . 2. Talat ocasio MF, Tom morrison [place], Lelo off-F errar i MCCARTHY, et al. Evalu ation , treat ment, and preve ntion of vitam in D defic iency : an Endoc rine Socie ty clini pauline pract ice guide line. JCEM. 2010; 96(7) :1911 -30. Not Available [facility] ([facility]) [address] [facility], [place], [address], 04/17/2024 10:15:45 04/14/20 24 04/14/2024 CT, brain , w/o contr ast No observ ation record ed. [address], [place], [address], 04/14/2024 16:04:08 04/14/20 24 04/14/2024 CT, cervi pauline spine , w/o contr ast No observ ation record ed. [address], [place], [address], 04/14/2024 16:42:11 04/25/20 24 04/24/2024 XR, tibia + fibul a, 2 view No observ ation record ed. [address], [place], [address], 04/27/2024 08:40:02 Result Notes None recorded. Problems Name Problem SNOMED Code Status Onset Date Resolution Date Notes Provider Name and Address Organization Details Recorded Time Acute pharyngi tis 999733738 Completed 201609/05/2017 SILVER Alvarez NP Attn: Saira vee,[address] [place], [address], [facility] 8 11:51:50 Hyperlip idemia 75898537 Active 2017 OLIVIER FUNES Attn: Saira vee,[address] [place], [address], [facility] 2 11:55:35 Low back pain 606931986 Active 2017 SILVER Alvarez NP Attn: Saira vee,[address] [place], [address], [facility] 8 11:51:22 Secondar y hypothyr oidism 85195811 Active 2017 SILVER Alvarez NP Attn: Saira vee,[address] [place], [address], [place] [facility] 8 11:51:23 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 Active 2017 SILVER Alvarez NP Attn: Saira vee,[address] [facility], [place], [address], [place] [facility] 8 11:51:45 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 Active 2021 OLIVIER FUNES Attn: Saira vee,[address] [facility], [place], [address], [place] [facility] 2 10:16:51 Neuropat hy 417394319 Active 2021 OLIVIER FUNES Attn: Saira vee,[address] [facility], [place], [address], [place] [facility] 2 10:29:10 Cramp in lower limb 745481041 Active 2021 OLIVIER FUNES Attn: Saira vee,[address] [facility], [place], [address], [place] [facility] 2 10:29:03 [facility] l hyperten june 32123562 Active 2021 OLIVIER FUNES Attn: Saira vee,[address] [facility], [place], [address], [place] [facility] 2 10:29:05 Insomnia 030640217 Active 2021 OLIVIER FUNES Attn: Saira vee,[address] [facility], [place], [address], [place] [facility] 2 10:29:08 Tobacco dependen ce syndrome 46163124 Active 2021 OLIVIER FUNES Attn: Saira vee,[address] [facility], [place], [address], [place] [facility] 2 10:29:13 Vitamin D deficien cy 00612858 Active 2021 OLIVIER FUNES Attn: Saiar g,[address] [facility], [place], [address], [place] [facility] 2 11:56:15 Screenin g for malignan t neoplasm of colon Active 2022 cologuard negative 12/2022, repeat 12/2025 OLIVIER FUNES Attn: Saira vee,[address] [facility], [place], [address], [place] [facility] 3 09:50:45 Problem Notes None recorded. Procedures Surgical History Date Name Laterality Status Provider Name and Address Organization Details Recorded Time Tubal Ligation completed Laura chirinos CMA [place] [facility] 12/27/2016 11:47:47 Imaging Results Imaging Date Name Status LastModified by Organiz ation Details LastModified Time 04/14/2024 CT, brain, w/o contrast completed [address], [address], 04/14/2024 16:04:08 04/14/2024 CT, cervical spine, w/o contrast completed [address], [address], 04/14/2024 16:42:11 04/24/2024 XR, tibia + fibula, 2 view completed [address], [address], 04/27/2024 08:40:02 Procedure Notes None recorded. Medical Equipment None Reported. Allergies Allergen ID Allergen Name Allergen Category Reaction Reaction Severity Criticality Documentation Date Start Date Code Code System Note Provider Name and Address Organization Details Recorded Time 17890218 Medicinal product containin g penicilli n and acting as antibacte rial agent (product) medicatio n Not available Not available Not available 05/26/2024 59987 05 SNOMED OLIVIER FUNES Attn: Saira vee,[address] [facility], [place], [address], [place] [facility] 4 08:54:27 Medications Name Sig Start Date Stop Date Status Note LastModified by Organization Details LastModified Time cyclobenza opal 10 mg tablet Take 1 tablet by mouth twice daily as needed 04/16 completed Not Available Not Available Not Available atorvastat in 40 mg tablet TAKE 1 TABLET BY MOUTH ONCE DAILY AT BEDTIME 2023 active Not Available Not Available Not Avai stan mia ne-DM 6.25 mg-15 mg/5 mL oral syrup [...] propionate 50 mcg/actuat ion nasal spray,susp ension [place] 1 spray every day by intranas al [...] height Body mass index (BMI) Body weight Respiratory rate Oxygen saturation Oxygen saturation in Arterial blood by Pulse oximetry Heart rate Body temperature Systolic blood pressure Diastolic blood pressure Provider Name and Address Organization Details Last Updated DateTime 3 163.83 cm 41 kg/m2 898891. 45 g 16 /min 98 % 98 % 80 /min 98 [degF] 144 mm[Hg] 80 mm[Hg] Laura Carrero CMA [facility] 3 10:16:41 Date Recorded Body height Body mass index (BMI) Body weight Oxygen saturation Oxygen saturation in Arterial blood by Pulse oximetry Heart rate Systolic blood pressure Diastolic blood pressure Provider Name and Address Organization Details Last Updated DateTime 3 163.83 cm 43 kg/m2 501744. 86 g 96 % 96 % 82 /min 160 mm[Hg] 80 mm[Hg] Jade Hanley MA [facility] 3 11:49:00 Date Recorded Respiratory rate Systolic blood pressure Diastolic blood pressure Provider Name and Address Organization Details Last Updated DateTime 04/15/2023 18 /min 153 mm[Hg] 77 mm[Hg] OLIVIER FUNES Attn: Accounting, [address] [place], [address], [facility] 04/15/2023 12:10:54 Date Recorded Body height Body mass index (BMI) Body weight Oxygen saturation Oxygen saturation in Arterial blood by Pulse oximetry Heart rate Systolic blood pressure Diastolic blood pressure Provider Name and Address Organization Details Last Updated DateTime 4 163.83 cm 43 kg/m2 293454. 26 g 99 % 99 % 75 /min 164 mm[Hg] 93 mm[Hg] Gillian Marshall [facility] 4 16:13:42 Date Recorded Respiratory rate Systolic blood pressure Diastolic blood pressure Provider Name and Address Organization Details Last Updated DateTime 08/15/2023 18 /min 120 mm[Hg] 80 mm[Hg] OLIVIER FUNES Attn: Accounting, [address] [place], [address], [facility] 08/15/2023 16:55:51 Date Recorded Body height Body mass index (BMI) Body weight Oxygen saturation Oxygen saturation in Arterial blood by Pulse oximetry Heart rate Respiratory rate Systolic blood pressure Diastolic blood pressure Provider Name and Address Organization Details Last Updated DateTime 4 163.83 cm 42.8 kg/m2 944371. 57 g 98 % 98 % 85 /min 18 /min 148 mm[Hg] 78 mm[Hg] Rachel Quan MA [facility] 4 13:59:16 Date Recorded Systolic blood pressure Diastolic blood pressure Provider Name and Address Organization Details Last Updated DateTime 04/16/2024 138 mm[Hg] 80 mm[Hg] OLIVIER FUNES Attn: Accounting,[address] [place], [address], [facility] 04/16/2024 14:31:11 Date Recorded Body height Provider Name an d Address Organization Details Last Updated DateTime 05/25/2024 163.83 cm Gillian Marshall [facility] 05/25/2024 17:13:43 Date Recorded Body temperature Heart rate Oxygen saturation Oxygen saturation in Arterial blood by Pulse oximetry Respiratory rate Systolic blood pressure Diastolic blood pressure Provider Name and Address Organization Details Last Updated DateTime 4 98 [degF] 89 /min 100 % 100 % 18 /min 120 mm[Hg] 80 mm[Hg] OLIVIER FUNES Attn: Accountin g,[address] [place], [address], [facility] 4 17:24:47 Social History Question Answer Notes LastModified by Organizat ion Details LastModified Time Tobacco Smoking Status Current Every Day Smoker SAIMA Trejo, [facility] 12/27/2016 11:49:17 Do You Have An Advance Directive? No Information not available 12/27/2016 What Is Your Level Of Alcohol Consumption? None Information not available 12/27/2016 Are You Blind Or Do You Have Difficulty Seeing? Yes Information not available 06/04/2021 What Is Your Level Of Caffeine Consumption? Heavy Coffee [email or web address] Information not available 12/13/2020 How Much Tobacco Do You Chew? None Information not available 09/28/2019 In The 14 Days Before Symptom Onset, Have You Had Close Contact With A Laboratory-confi rmed COVID-19 While That Case Was Ill? No [email or web address] Information not available 12/13/2020 In The 14 Days Before Symptom Onset, Have You Had Close Contact With A Person Who Is Under Investigation For COVID-19 While That Person Was Ill? No [email or web address] Information not available 12/13/2020 Have You Been To An Area Known To Be High Risk For COVID-19? No Information not available 12/13/2020 Are You Currently Employed? Yes Information not available 09/28/2019 Are You Deaf Or Do You Have Serious Difficulty Hearing? No [email or web address] Information not available 12/13/2020 What Type Of Diet Are You Following? REGULAR Information not available 12/27/2016 Which Illicit Or Recreational Drugs Have You Used? None Information not available 12/27/2016 Do You Or Have You Ever Used E-cigarettes Or Vape? Never Used Electronic Cigarettes Information not available 09/28/2019 Education 2 Year College Information not available 09/28/2019 What Is Your Occupation? Certified [employer] Information not available 09/28/2019 Are There [...] Seat Belt Or Car Seat Routinely? Yes Information not available 12/13/2020 Are You Sexually Active? No Information not available 12/27/2016 Do You Have Smoke And Carbon Monoxide Detectors In Your Home? Yes [email or web address] Information not available 12/13/2020 At What Age [...] Anxious, Or Unable To Sleep At Night)? [id number] Information not available 06/04/2021 Do You Use Any Illicit Or Recreational Drugs? Yes Marijuanna [email or web address] Information not available 12/13/2020 Do You Use Sunscreen Routinely? No Information not available 12/27/2016 On What Date Was Tobacco Cessation Counseling Provided? 04/16/2024 Information not available 04/16/2024 How Many Years Have You Smoked Tobacco? 20 Information not available 12/27/2016 Do You Or Have You Ever Used Any Other Forms Of Tobacco Or Nicotine? No [email or web address] Information not available 12/13/2020 Sex: Female Functional [...] 2016 11:49:05 Father Malignant tumor of lung [email or web address] Not available 12/13 16:35:35 Paternal Uncle Diabetes mellitus [email or web address] Not available 12/13 16:35:43 Paternal Uncle Myocardial infarction Not available 11/19 16:36:02 Maternal Uncle Myocardial infarction [email or web address] Not available 11/19 16:36:02 Medical History Condition Response Coronary Artery Disease N Other N Atrial Fibrillation N High Blood Pressure Y Depression N COPD N Blood Clots N Anxiety Disorder Y Muscle, Joint, or Bone Problems Y Acid Reflux (GERD) N Cancer N Stroke N ADHD N High Cholesterol N Liver Disease N Schizophrenia N Headaches N Kidney or Bladder Problems N Thyroid Problems N GI Problems N Eating Disorder N Skin Problems N Anemia N Heart Attack ([place]) N Diabetes N Seizures/Epilepsy N Asthma N Allergies N Substance Abuse N Hepatitis N Osteoporosis N Heart Failure N Gynecological [...] Vaccine Type Date Status Note Provider Pan e and Address Organization Details Recorded Time [...] pneumococcal, unspecified formulation 04/23/2013 completed Laura Carre[place] C[place], [place] [facility] 11/25/2016 09:50:04 Tdap 04/23/2013 completed [place] Carrero C[place] [facility] 11/25/2016 09:50:13 Past Encounters Encounter ID Performer Location Encounter Start Date Encounter Closed Date Diagnosis/Indication Diagnosis SNOMED-CT Code Diagnosis ICD10 Code [id number] SILVER Alvarez NP [facility] [address] [place] [address] 12/27/2016 11:32:18 12/27/2016 14:33:36 Neoplasm of pituitary gland 742888758 D49.7 Insomnia 080678054 G47.0 0 Upper resp iratory infection 57566918 J06.9 Pain in lower limb 25873 006 M79.604 Obesity 831674909 E66.9 [id number] SILVER Alvarez NP [facility] [address] [place] [address] 01/10/2017 12:22:44 01/10/2017 12:58:52 Insomnia 180870379 G47.00 Family his tory of diabetes mellitus 248919331 Z83.3 Restless legs 84901260 G 25.81 [id number] SILVER Alvarez NP [facility] [address] [place] [address] 01/17/2017 10:19:39 01/17/2017 12:18:52 Indigestion 040471898 R10.13 Low back pain 269943184 M54.5 Neck pain 68016096 M54.2 Cough 50143461 R05 [id number] SILVER Alvarez NP [facility] [address] [place] [address] 03/21/2017 10:47:22 04/02/2017 10:52:46 Indigestion 204240478 R10.13 Low back pain 657399116 M54.5 Neck pain 48348642 M54.2 Cough 60592555 R05 Insomnia 472020766 G47.0 0 Restless legs 10066385 G 25.81 Screening mammography 24 829397 Z12.31 Essential hypertension 30450328 I10 [id number] SILVER Alvarez NP [facility] [address] [place] [address] 04/04/2017 10:51:25 04/04/2017 16:55:50 Low back pain 667187060 M54.5 [id number] Laura Carrero CMA [facility] [address] [place] [address] 05/09/2017 10:38:01 05/14/2017 17:28:33 Upper respiratory infection 17304788 J06.9 Cough 06376875 R05 [id number] SILVER Alvarez NP [facility] [address] [place] [address] 06/26/2017 12:06:28 06/27/2017 16:08:09 Insomnia 603421504 G47.00 Acute pharyngitis 379202 003 J02.9 [id number] SILVER Alvarez NP [facility] [address] [place] [address] 08/26/2017 15:28:49 08/28/2017 09:50:57 Upper respiratory infection 90138874 J06.9 Cough 52953422 R05 [id number] SILVER Alvarez NP [facility] [address] [place] [address] 09/05/2017 09:49:27 09/08/2017 10:46:52 Hyperlipidemia 27124182 E78.5 Low back pain 965795989 M54.5 Secondary hypothyroidism 85654443 E03.8 [id number] SILVER Alvarez NP [facility] [address] [place] [address] 02/27/2018 10:51:36 02/27/2018 12:36:08 Low back pain 861266685 M54.5 Secondary hypothyroidism 43754591 E03.8 Essential hypertension 79438018 I10 [id number] SILVER Alvarez NP [facility] [address] [place] [address] 03/31/2018 11:47:07 03/31/2018 13:21:08 Severe anxiety (panic) 23530294 F41.0 [id number] Maye Wilson MD [facility] [address] [place] [address] 09/21/2018 12:03:09 09/23/2018 08:14:27 Acute bronchitis with bronchospasm 44508378 J20.9 Standardiz ed adult depression screening tool completed [id number] 21452 Z13.89 Body mass index 40+ - severely obese 466246226 Z68.41 [id number] Maye Wilson MD [facility] [address] [place] [address] 12/03/2018 12:05:48 12/15/2018 09:12:48 Acute pharyngitis 951300167 J02.9 Neuropathic pain 4839527 09 M79.2 Screening mammography 24 098085 Z12.31 Adult heal th examination 511246665 Z00.00 Fatigue 87882822 R53.83 Hyperlipid emia screening 447725213 Z13.051 [id number] Maye Wilson MD [facility] [address] [place] [address] 04/29/2019 11:28:36 05/03/2019 11:03:10 Acute bronchitis with bronchospasm 28491613 J20.9 Anterior c hest wall pain 163160376 R07.89 Trying to give up smoking 620077280 Z72.0 [id number] Maye Wilson MD [facility] [address] [place] [address] 09/28/2019 14:19:04 10/04/2019 08:15:35 Recurrent major depression 65847130 F33.9 Lumbar radiculopathy 128 918674 M54.16 Acute bron chitis with bronchospasm 88952375 J20.9 [id number] Maye Wilson MD [facility] [address] [place] [address] 06/20/2020 08:43:08 06/26/2020 12:28:58 Screening mammography 74811341 Z12.31 Bronchitis 40020429 J40 Chronic cough 57062017 R 05 Postmenopa usal bleeding 43313512 N95.0 [id number] Maye Wilson MD [facility] [address] [place] [address] 12/13/2020 15:57:47 12/19/2020 10:10:23 Essential hypertension 09716026 I10 Adult heal th examination 807469753 Z00.00 Screening mammography 24 619984 Z12.31 Screening for malignant neoplasm of colon 171097110 Z12.11 Depression screening 171 035675 Z13.31 [id number] Philipp Dillard MD [facility] [address] [place] [address] 06/04/2021 16:20:59 06/06/2021 12:02:01 Pain of left knee joint 9211674586 86148 M25.562 Essential hypertension 74752368 I10 Adult heal th examination 574895157 Z00.00 Abdominal pain 08389710 R10.9 [id number] OLIVIER FUNES [facility] [address] [place] [address] 04/16/2022 15:20:04 04/17/2022 14:16:06 Depression screening 153445647 Z13.31 Neuropathy 258330175 G62 .9 Tumor of p ituitary and suprasellar region 881695359 D49.7 Cramp in lower limb 4499 30236 R25.2 Essential hypertension 30672585 I10 Insomnia 716350888 G47.0 0 Tobacco de pendence syndrome 72433930 F17.905 [id number] OLIVIER FUNES [facility] [address] [place] [address] 06/28/2022 10:00:16 07/02/2022 11:56:56 Neuropathy 867737896 G62.9 Cramp in lower limb 4499 56305 R25.2 Essential hypertension 79579485 I10 Insomnia 986671215 G47.0 0 Morbid obesity 013250483 E66.01 Screening for malignant neoplasm of breast 881191823 Z12.39 [id number] OLIVIER FUNES [facility] [address] [place] [address] 12/31/2022 10:08:28 12/31/2022 10:35:04 Neuropathy 202234683 G62.9 Essential hypertension 28339374 I10 Insomnia 923614862 G47.0 0 Screening for malignant neoplasm of breast 851344652 Z12.39 Smoker 17834033 F17.200 Hyperlipidemia 88862891 E78.5 Cramp in lower limb 4499 32143 R25.2 Screening for malignant neoplasm of colon 908525873 Z12.11 Screening for malignant neoplasm of cervix 164688360 Z12.4 Depression screening 171 750498 Z13.31 [id number] Reginald sims MD [facility] [address] [place] [address] 04/15/2023 11:41:30 04/15/2023 12:32:55 Screening for malignant neoplasm of cervix 984437414 Z12.4 Screening for malignant neoplasm of breast 898178744 Z12.39 Hyperlipidemia 75747786 E78.5 Muscle twitch 96413259 R 25.3 Essential hypertension 64854630 I10 Depression screening 171 879737 Z13.31 Anxiety 44064767 F41.9 [id number] OLIVIER FUNES [facility] [address] [place] [address] 08/15/2023 15:56:00 08/18/2023 13:30:23 Muscle twitch 80119401 R25.3 Essential hypertension 83665411 I10 Insomnia 279593274 G47.0 0 Hyperlipidemia 64714961 E78.5 Visual impairment 730502 003 H54.7 Low grade squamous intraepithelial lesion on cervical Papanicolaou smear 4417493908 9105 R87.078 [id number] OLIVIER FUNES [facility] [address] [place] [address] 04/16/2024 13:40:39 04/16/2024 14:26:42 Slurred speech 654964450 R47.81 Obesity 291969344 E66.8 Fatigue 09549636 R53.83 Muscle twitch 42680824 R 25.3 Essential hypertension 33205685 I10 Insomnia 919243823 G47.0 0 Depression screening 171 732885 Z13.31 [id number] OLIVIER FUNES [facility] [address] [place] [address] 05/25/2024 16:18:35 05/25/2024 17:31:46 Bacterial upper respiratory infection 895847417 J06.9 Tight chest 61683850 R07 .89 Screening for malignant neoplasm of breast 922058713 Z12.39 Health Concerns Section Related Observation LastModified by Organization Detai ls LastModified Time None Recorded Concern Status LastModified by Organization Details LastModified Time None Recorded Advance Directives Directive N: Payers Encounter Date Sequence Insurance Name Policy Number Policy De Souza Covered Member ID De Souza Member ID Guarantor Name 12/31/2022 1 [place] [id number] Allison Beyk [id number] Allison Beyk 04/15/2023 1 [place] [id number] Allison Beyk [id number] Allison Beyk 08/15/2023 1 [place] [id number] Allison Beyk [id number] Allison Beyk 04/16/2024 1 [place] [id number] Allison Beyk [id number] Allison Beyk 05/25/2024 1 [place] [id number] Allison Beyk [id number] Allison Beyk Notes Date Note Type Note Provider Name and Address Organization Details Recorded Time 12/31/2022 text/html Pt presents for med refills. Reports that she has not completed mammogram. No complaints today. OLIVIER FUNES Attn: Accounting,[address] [facility], [place], [address], [facility] [place] 12/31/2022 15:38:40 04/15/2023 text/html Pt presents for WWE. , vaginal. Last pap unknown, no h/o abnormals. LMP unknown. Tubal ligation 1980. Denies hematuria, dysuria, odor, irritation, urinary frequency/urgency , or discharge. States that she had 1 day of maroon colored vaginal bleeding 8 months ago. No h/o STDs. Pt has not been sexually active in 3 yrs. Last mammogram unknown, no h/o abnormals.. Maternal aunt had breast and colon cancer.C/o vision issues. Reports that she had eye exam last week, told she needs surgery to remove cataracts and encouraged to not drive at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
== END 2024-07-12 02:17 | disposition home or self-care (01) ==
LOC: ANHED 07-12 00:01
PROVIDERS: Emergency Provider Emergency Medicine; PCP Physician Assistant
DX: R04.0 Epistaxis (principal); I10 Essential (primary) hypertension; K21.9 Gastro-esophageal reflux disease without esophagitis; F41.9 Anxiety disorder, unspecified
CPT/HCPCS: 30901; 99282; A9270

== ENCOUNTER 2024-07-12 14:18 | Emergency (ER) | payer BC, SELFPAY ==
[2024-07-12 14:44] VITALS: BP 142/72; PULSE 95; RESP 16; TEMP 37; O2SAT 100
--- NOTE | 2024-07-12 15:08 | ED_ITS ---
HPI - Epistaxis General Chief complaint: Epistaxis <Halie Silva APRN - Last Filed: 07/12/24 15:11> Stated complaint: epistaxis <Halie Silva APRN - Last Filed: 07/12/24 15:11> Time Seen by Provider: 07/12/24 15:00 <Halie Silva APRN - Last Filed: 07/12/24 15:11> Focused HPI: Patient is a 58-year-old female who presents to the ER with complaints of an ongoing nose bleed. She reports she had an uncontrolled nosebleed yesterday for which she came to this ER. Patient reports the doctor placed a rhino rocket in her nose. She reports the doctor then removed the rhino rocket and put Afrin in her nose, which helped stopped the bleeding until she got home. Patient reports they wanted her to stand ENT, but no one can see me during the holidays. She denies any history of blood clotting disorders, stroke, headache, fevers. Patient reports a history high blood pressure and high cholesterol. GENERAL: Well-appearing, well-nourished, and in no acute distress. HEAD: Normocephalic, atraumatic. CHEST: Clear to auscultation. ?No respiratory distress. HEART: Regular rate and rhythm.? NEURO: ?Alert and oriented x3. Patient screened in triage and initial orders placed.? ?Additional care and disposition to be based upon?diagnostic testing and treatment. <Halie Silva APRN - Last Filed: 07/12/24 15:11> History of Present Illness HPI Narrative: Agree with the HPI as described above <Rafy Anna MD - Last Filed: 07/12/24 20:58> Related Data Home medications: Home Medications ?Medication ?Instructions ?Recorded ?Confirmed ?Last Taken ?Type amlodipine 10 mg DIRECTED 05/03/21 01/10/23 Unknown History gabapentin 300 mg DIRECTED 05/03/21 01/10/23 Unknown History lisinopril 05/03/21 Unknown History amitriptyline 150 mg tablet 150 mg DIRECTED 01/10/23 01/10/23 Unknown History hydrochlorothiazide 25 mg tablet 25 mg DIRECTED 01/10/23 01/10/23 Unknown History <Halie Silva APRN - Last Filed: 07/12/24 15:11> Allergies/adverse reactions: Allergies Allergy/AdvReac Type Severity Reaction Status Date / Time No Known Allergies Allergy Verified 04/14/24 13:25 <Halie Silva APRN - Last Filed: 07/12/24 15:11> Review of Systems 2 Review of Systems: As reviewed above <Rafy Anna MD - Last Filed: 07/12/24 20:58> PMFSH Past Medical History Medical History: Medical History Hypertension GERD (gastroesophageal reflux disease) Anxiety <Halie Silva APRN - Last Filed: 07/12/24 15:11> Exam 2 Narrative: GENERAL: [Well-appearing, well-nourished, and in no acute distress.] HEAD: [Normocephalic, atraumatic.] EYES: [PERRLA and EOMI.] ENT: Evidence of recent epistaxis from the bilateral nares but no active bleeding or congestion at this time. No nasal septal hematoma, no posterior or pharyngeal bleeding or dried blood. Clear secretions. NECK: Supple. CHEST: [Clear to auscultation. No respiratory distress.] HEART: [Regular rate and rhythm]. No murmur heard. [Normal peripheral pulses.] ABDOMEN: [Soft, nondistended], [nontender], [No rigidity or guarding] EXTREMITIES: Normal range of motion. [No edema.] SKIN: Warm, dry, no rash. NEURO: [No focal deficits]. Alert and oriented [x3.] PSYCH: Very tearful mood and affect <Rafy Anna MD - Last Filed: 07/12/24 20:58> Course Vital Signs Vital signs: Vital Signs Temperature 37.0 C 07/12/24 14:44 Pulse Rate 95 07/12/24 14:44 Respiratory Rate 16 07/12/24 14:44 Blood Pressure 142/72 H 07/12/24 14:44 Pulse Oximetry 100 07/12/24 14:44 Temperature 37.0 C 07/12/24 14:44 Pulse Rate 70 07/12/24 16:45 Respiratory Rate 16 12/23/24 16:45 Blood Pressure 140/72 07/12/24 16:45 Pulse Oximetry 100 07/12/24 16:45 <Halie Silva APRN - Last Filed: 07/12/24 15:11> Vital Signs Temperature 37.0 C 07/12/24 14:44 Pulse Rate 95 07/12/24 14:44 Respiratory Rate 16 07/12/24 14:44 Blood Pressure 142/72 H 07/12/24 14:44 Pulse Oximetry 100 07/12/24 14:44 Temperature 37.0 C 07/12/24 14:44 Pulse Rate 70 07/12/24 16:45 Respiratory Rate 16 07/12/24 16:45 Blood Pressure 140/72 07/12/24 16:45 Pulse Oximetry 100 07/12/24 16:45 <Rafy Anna MD - Last Filed: 07/12/24 20:58> MDM - Epistaxis MDM Narrative Medical decision making narrative: Patient is a 58-year-old female that presents for repeat evaluation of epistaxis. She was seen by previous night physician last night for epistaxis and was packed with anterior nasal packing for persistent epistaxis. Patient refused this and had pulled out prior to discharge yesterday. She was warned about repeating counters for persistent bleeding but she left the apartment at that time. She presents today with repeat encounter for epistaxis. She was apparently bleeding up in triage but during my initial assessment had complete resolution of her epistaxis. I was able to identify recent evidence of epistaxis in her nares but no active foci of bleeding. No nasal septal hematoma, no blood in the posterior or nasal or oral pharynx, no respiratory distress, tolerating secretions. Patient asked for advice on plan going forward if she has recurrence for bleed. She was provided Afrin here in the emergency department and will be able to take the bottle home with instructions on only to use it for persistent bleeding and only for very short period time. We also discussed nasal decongestant therapy rather than blowing her nose which is likely which triggered her bleeding this 1st place that she has been repeatedly blowing her nose with congestion and cold-like symptoms recently. We gave her Claritin as well as pseudoephedrine here in the emergency department. Instructions to take this [id number] medication and by at her pharmacy. She was safely discharged at this time as her epistaxis is resolved. Prior to discharge patient is requesting a work note as her family member just and she is feeling distraught and feels like she cannot go to work. Patient provided a brief work note. <Rafy Anna MD - Last Filed: 07/12/24 20:58> Differential Diagnosis Differential diagnosis: Likely nasal bone fracture, anterior epistaxis, posterior epistaxis and other <Rafy Anna MD - Last Filed: 07/12/24 20:58> Medical Records Attestation: I reviewed the patient's medical records. <Rafy Anna MD - Last Filed: 07/12/24 20:58> Lab Data Attestation: I reviewed the patient's lab results. <Rafy Anna MD - Last Filed: 07/12/24 20:58> Result diagrams: 07/12/24 16:14 07/12/24 16:14 <Halie Silva APRN - Last Filed: 07/12/24 15:11> Labs: Lab Results 07/12/24 Range/Units 16:14 WBC 10.0 (4.5-10.0) K/mm3 RBC 4.13 L (4.2-5.4) M/mm3 Hgb 12.1 (12.0-15.0) g/dL Hct 36.5 L (37.0-47.0) % MCV 88.4 (80-100) fl MCH 29.3 (26-34) pg MCHC 33.2 (32-36) g/dl RDW 16.0 H (11.5-14.5) % Plt Count 206 (150-375) k/mm3 MPV 10.4 (7.4-10.4) fl Immature Gran % (Auto) 0.3 (0-0.5) % Neut % (Auto) 60.8 (45.5-73.1) % Lymph % (Auto) 29.4 (18.3-44.2) % Nuckolls % (Auto) 7.1 (2.6-8.5) % Eos % (Auto) 2.0 (0-4.4) % Baso % (Auto) 0.4 (0.2-1.2) % Lymph # (Auto) 2.93 (0.9-3.2) K/mm3 Nuckolls # (Auto) 0.7 H (0.1-0.6) K/mm3 Eos # (Auto) 0.2 (0-0.3) K/mm3 Baso # (Auto) 0.0 (0.0-0.1) K/mm3 Abs Immat Gran (auto) 0.03 (0.00-0.031) K/mm3 Absolute Neuts (auto) 6.1 (1.3-6.7) K/mm3 Absolute Nucleated RBC 0.000 (0.0-0.012) K/mm3 Nucleated RBC % 0.0 (0.0-0.2) % PT 13.3 (11.1-14.7) Seconds INR 1.0 APTT 32.0 (22.3-36.8) Seconds Sodium 137 (137-145) mmol/L Potassium 4.2 (3.4-5.0) mmol/L Chloride 108 H (98-107) mmol/L Carbon Dioxide 27 (22-30) mmol/L Anion Gap 2 L (4-12) mmol/L BUN 22 H (7-17) mg/dL Creatinine 0.70 (0.7-1.0) mg/dL Estim Creat Clear Calc 88 ml/min Estimated GFR > 60 (59 - ) Glucose 111 H (65-110) mg/dL Calcium 9.1 (8.4-10.2) mg/dL Total Bilirubin 0.4 (0.2-1.3) mg/dL AST 48 H (14-36) U/L ALT 126 H (6-35) U/L Alkaline Phosphatase 102 (38-126) U/L Total Protein 7.0 (6.3-8.2) g/dL Albumin 4.3 (3.5-5.1) g/dL <Halie Silva, MARKETING COMMUNICATION MANAGER - Last Filed: 07/12/24 15:11> Lab Results 07/12/24 Range/Units 16:14 WBC 10.0 (4.5-10.0) K/mm3 RBC 4.13 L (4.2-5.4) M/mm3 Hgb 12.1 (12.0-15.0) g/dL Hct 36.5 L (37.0-47.0) % MCV 88.4 (80-100) fl MCH 29.3 (26-34) pg MCHC 33.2 (32-36) g/dl RDW 16.0 H (11.5-14.5) % Plt Count 206 (150-375) k/mm3 MPV 10.4 (7.4-10.4) fl Immature Gran % (Auto) 0.3 (0-0.5) % Neut % (Auto) 60.8 (45.5-73.1) % Lymph % (Auto) 29.4 (18.3-44.2) % Nuckolls % (Auto) 7.1 (2.6-8.5) % Eos % (Auto) 2.0 (0-4.4) % Baso % (Auto) 0.4 (0.2-1.2) % Lymph # (Auto) 2.93 (0.9-3.2) K/mm3 Nuckolls # (Auto) 0.7 H (0.1-0.6) K/mm3 Eos # (Auto) 0.2 (0-0.3) K/mm3 Baso # (Auto) 0.0 (0.0-0.1) K/mm3 Abs Immat Gran (auto) 0.03 (0.00-0.031) K/mm3 Absolute Neuts (auto) 6.1 (1.3-6.7) K/mm3 Absolute Nucleated RBC 0.000 (0.0-0.012) K/mm3 Nucleated RBC % 0.0 (0.0-0.2) % PT 13.3 (11.1-14.7) Seconds INR 1.0 APTT 32.0 (22.3-36.8) Seconds Sodium 137 (137-145) mmol/L Potassium 4.2 (3.4-5.0) mmol/L Chloride 108 H (98-107) mmol/L Carbon Dioxide 27 (22-30) mmol/L Anion Gap 2 L (4-12) mmol/L BUN 22 H (7-17) mg/dL Creatinine 0.70 (0.7-1.0) mg/dL Estim Creat Clear Calc 88 ml/min Estimated GFR > 60 (59 - ) Glucose 111 H (65-110) mg/dL Calcium 9.1 (8.4-10.2) mg/dL Total Bilirubin 0.4 (0.2-1.3) mg/dL AST 48 H (14-36) U/L ALT 126 H (6-35) U/L Alkaline Phosphatase 102 (38-126) U/L Total Protein 7.0 (6.3-8.2) g/dL Albumin 4.3 (3.5-5.1) g/dL <Rafy Anna MD - Last Filed: 07/12/24 20:58> Discharge Plan Discharge Clinical Impression: Epistaxis <Halie Silva APRN - Last Filed: 07/12/24 15:11> Patient Disposition: Home, Self-Care <Halie Silva APRN - Last Filed: 07/12/24 15:11> Condition: Stable <Halie Silva APRN - Last Filed: 07/12/24 15:11> Instructions: Antibiotic Form, Nosebleed (ED) <Halie Silva APRN - Last Filed: 07/12/24 15:11> Additional Instructions: Your nose bleed has stopped since her presentation here in the emergency department without any intervention. We will send you home with Afrin nasal spray and recommendations for pseudoephedrine or Claritin, Mucinex for any other kind a decongestant therapy for your sinuses. Nasal spray as needed for congestion and continue nose bleeding, if you have any persistent epistaxis please return to the emergency department otherwise follow-up with your primary care provider and your nose and throat on outpatient basis. <Halie Silva APRN - Last Filed: 07/12/24 15:11> Patient Language: Ukrainian <Halie Silva APRN - Last Filed: 07/12/24 15:11> Prescriptions: No Action amlodipine 10 mg DIRECTED gabapentin 300 mg DIRECTED lisinopril cyclobenzaprine 10 mg tablet 10 mg PO TID PRN (Reason: muscle spasm) Qty: 20 0RF amitriptyline 150 mg tablet 150 mg DIRECTED hydrochlorothiazide 25 mg tablet 25 mg DIRECTED hydrocodone-acetaminophen 5-325 mg tablet 1 tablet PO Q8H PRN (Reason: pain) Qty: 10 0RF <Halie Silva APRN - Last Filed: 07/12/24 15:11> Follow-up/Referrals: Lucero,OLIVIER Meneses [Primary Care Provider] - <Halie Silva APRN - Last Filed: 07/12/24 15:11> Stand Alone Forms: Work/School Release IP <Halie Silva APRN - Last Filed: 07/12/24 15:11> Time of Disposition: 16:33 <Halie Silva APRN - Last Filed: 07/12/24 15:11> 16:33 <Rafy Anna MD - Last Filed: 07/12/24 20:58>
[2024-07-12 16:20] LABS: Basophils Percent Auto 0.4 % (0.2-1.2); Eosinophils Absolute Auto 0.2 K/mm3 (0-0.3); Hematocrit 36.5 % (37.0-47.0); Hemoglobin 12.1 g/dL (12.0-15.0); Immature Granulocyte Absolute 0.03 K/mm3 (0.00-0.031); Immature Granulocyte Percent A 0.3 % (0-0.5); Lymphocytes Absolute Auto 2.93 K/mm3 (0.9-3.2); Lymphocytes Percent Auto 29.4 % (18.3-44.2); Mean Corpuscular HGB Conc 33.2 g/dl (32-36); Mean Corpuscular Hemoglobin 29.3 pg (26-34); Mean Corpuscular Volume 88.4 fl (80-100); Mean Platelet Volume 10.4 fl (7.4-10.4); Monocytes Absolute Auto 0.7 K/mm3 (0.1-0.6); Monocytes Percent Auto 7.1 % (2.6-8.5); Neutrophils Absolute Auto 6.1 K/mm3 (1.3-6.7); Neutrophils Percent Auto 60.8 % (45.5-73.1); Platelet Count Result 206 k/mm3 (150-375); Red Blood Count 4.13 M/mm3 (4.2-5.4)
[2024-07-12 16:30] LABS: Alanine Aminotransferase 126 U/L (6-35); Albumin Level 4.3 g/dL (3.5-5.1); Alkaline Phosphatase 102 U/L (38-126); Anion Gap 2 mmol/L (4-12); Aspartate Amino Transferase 48 U/L (14-36); Bilirubin,Total 0.4 mg/dL (0.2-1.3); Blood Urea Nitrogen 22 mg/dL (7-17); Calcium 9.1 mg/dL (8.4-10.2); Carbon Dioxide 27 mmol/L (22-30); Chloride 108 mmol/L (98-107); Estimated CRCL calculation 88 ml/min; Estimated Glomerular Filt Rate > 60; Glucose 111 mg/dL (65-110); Potassium 4.2 mmol/L (3.4-5.0); Sodium 137 mmol/L (137-145)
[2024-07-12 16:38] LABS: Prothrombin Time 13.3 Seconds (11.1-14.7)
--- NOTE | 2024-07-12 16:40 | PC.NURSE ---
Afrin administered into each nare 1x prior to medication discontinuation.
[2024-07-12 16:45] VITALS: BP 140/72; PULSE 70; RESP 16; O2SAT 100
[2024-07-12] MEDS: PSEUDOEPHEDRINE HCL 30 MG TABLET PO (16:45)
[2024-07-12] MEDS: LORATADINE 10 MG TABLET PO (16:45)
== END 2024-07-12 16:54 | disposition home or self-care (01) ==
LOC: ANHED 16:41
PROVIDERS: Registered Nurse; Emergency Provider Student in an Organized Health Care Education/Training Program; PCP Physician Assistant
DX: R04.0 Epistaxis (principal); I10 Essential (primary) hypertension; E78.00 Pure hypercholesterolemia, unspecified; K21.9 Gastro-esophageal reflux disease without esophagitis
CPT/HCPCS: 30901; 36415; 80053; 85025; 85610; 85730; 99282; A9270